=== PATIENT | female | born 1965 ===

== ENCOUNTER 2020-03-04 10:53 | Outpatient (REF) | payer OTHER, SELFPAY ==
--- NOTE | 2020-03-04 11:09 | XR_ITS ---
EXAMINATION: XR KNEE, LEFT CLINICAL INFORMATION: Pain left knee COMPARISON: Report standing AP knees 03/02/2009 TECHNIQUE: Four views of the left knee. FINDINGS: There is no fracture or dislocation or destructive process. There is normal bony mineralization. No joint narrowing or erosive change or chondrocalcinosis. Small suprapatellar effusion is suggested on the lateral view. Hoffa's fat pad appears normal. There may be punctate mineralization in the region of the distal patellar tendon. The deep infrapatellar recess is preserved. IMPRESSION: Small suprapatellar effusion. Bony structures unremarkable.
== END 2020-03-04 10:54 | disposition home or self-care (01) ==
LOC: HO.HMGCX 10:53
PROVIDERS: PCP Internal Medicine; Visit Provider Internal Medicine
DX: M25.562 Pain in left knee (principal)
CPT/HCPCS: 73564

== ENCOUNTER 2020-03-24 14:31 | Outpatient (REF) | payer OTHER, SELFPAY ==
--- NOTE | 2020-03-24 15:07 | US_ITS ---
EXAMINATION: US VENOUS ULTRASOUND WITH DOPPLER LOWER EXTREMITY, LEFT CLINICAL INFORMATION: Pain of unspecified leg. 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 Spectral analysis with color-flow imaging is performed. FINDINGS: There is normal venous compression and respiratory variation and augmented flow. The visualized common femoral vein, superficial femoral vein, profunda femoral vein, popliteal vein, and the trifurcation region shows no evidence of deep venous thrombosis. There is a 4.8 x 0.7 x 1.4 cm complex fluid collection in the popliteal fossa consistent with a Tinsley's cyst. There is a prominent left inguinal lymph node measuring 2.8 x 0.8 x 1.8 cm. There is a central fatty hilum, a benign morphologic feature. This could be reactive. If the patient's symptoms persist, followup ultrasound in 5 days 7 days might be of value to exclude proximal propagation from a non-visualized calf vein. US/US venous duplex LE LT IMPRESSION: No DVT demonstrated in the left lower extremity. Prominent left inguinal lymph node is seen, possibly reactive. Complex fluid collection in the left popliteal fossa.
[2020-03-24 17:12] LABS: Cholesterol 181 mg/dL; HDL Cholesterol 76 mg/dL; LDL Cholesterol Calculated 88 mg/dl; Triglycerides 86 mg/dL
== END 2020-03-24 14:32 | disposition home or self-care (01) ==
LOC: HO.HMGCLDS 14:31
PROVIDERS: PCP Internal Medicine; Visit Provider Internal Medicine
DX: M79.609 Pain in unspecified limb (principal); I83.819 Varicose veins of unspecified lower extremity with pain; Z00.01 Encounter for general adult medical examination with abnormal findings
CPT/HCPCS: 80061; 93971

== ENCOUNTER → 2020-03-31 08:44 | Outpatient (BNVA) | payer OTHER, SELFPAY | PROVIDERS: PCP Internal Medicine; Visit Provider Orthopaedic Surgery | DX: M22.2X2 Patellofemoral disorders, left knee (principal) | CPT/HCPCS: 20610; 99202; J1040 ==

== ENCOUNTER 2020-05-11 11:48 | Outpatient (REF) | payer OTHER, SELFPAY ==
--- NOTE | 2020-05-11 11:52 | MM_ITS ---
EXAMINATION: MM SCREENING DIGITAL BREAST TOMOSYNTHESIS, BILATERAL CLINICAL INFORMATION: Screening. Asymptomatic. Prior benign left breast surgery 2014. The lifetime risk of breast cancer based on the Tyrer-Cuzick Model is 6%. COMPARISON: Mammography: 08/09/2017, 07/11/2016, 03/31/2015, 09/08/2014 TECHNIQUE: Digital breast tomosynthesis is performed in both the craniocaudal and mediolateral oblique views along with computer-aided detection (CAD). Synthesized 2D images are generated from the tomosynthesis. FINDINGS: There are scattered areas of fibroglandular density (ACR BI-RADS breast composition Category b). Chronic oval parenchymal asymmetry posterior upper outer left breast is similar to prior studies. There is a biopsy clip marker again seen anterior central 6:00 left breast. Macrolobulated nodule mid 9:00 left breast noted on exam 2017 is no longer demonstrated. The right breast is unremarkable. Neither breast shows significant mass or architectural abnormality or abnormal calcifications. MM/MM tomosynthesis screening BI IMPRESSION: No mammographic evidence of malignancy. ASSESSMENT: BI-RADS 2: Benign RECOMMENDATION: Routine annual mammography screening. This patient's information was entered into a reminder system with a target due date for their next mammogram.
== END 2020-05-11 11:49 | disposition home or self-care (01) ==
LOC: HO.MAMMO 11:48
PROVIDERS: PCP Internal Medicine; Visit Provider Internal Medicine
DX: Z12.31 Encounter for screening mammogram for malignant neoplasm of breast (principal)
CPT/HCPCS: 77063; 77067

== ENCOUNTER 2020-06-15 09:49 | Outpatient (REF) | payer OTHER, SELFPAY ==
[2020-06-18 17:07] LABS: HPV mRNA E6/E7 rflx Not Detected (Not Detected)
== END 2020-06-15 09:50 | disposition home or self-care (01) ==
LOC: HO.LAB 09:49
PROVIDERS: PCP Internal Medicine; Visit Provider Advanced Practice Midwife
DX: Z01.419 Encounter for gynecological examination (general) (routine) without abnormal findings (principal); Z11.51 Encounter for screening for human papillomavirus (HPV); R23.2 Flushing
CPT/HCPCS: 36415; 87624; 88142

== ENCOUNTER → 2020-07-14 09:21 | Outpatient (BNVA) | payer OTHER, SELFPAY | PROVIDERS: PCP Internal Medicine; Visit Provider Surgery Vascular Surgery | DX: I83.12 Varicose veins of left lower extremity with inflammation (principal) | CPT/HCPCS: 99202 ==

== ENCOUNTER 2020-07-20 10:22 | Outpatient (REF) | payer OTHER, SELFPAY ==
--- NOTE | ~2020-07-20 | US_ITS ---
EXAMINATION: US VENOUS ULTRASOUND WITH DOPPLER LOWER EXTREMITY, BILATERAL CLINICAL INFORMATION: Varicose veins of left lower extremity without inflammation COMPARISON: Ultrasound 03/24/2020 TECHNIQUE: Ultrasound of the deep veins is performed from the hip to the calf with compression sonography and color and pulse Doppler assessment. Spectral analysis with color-flow imaging is performed. FINDINGS: There is normal venous compression of the visualized common femoral, femoral and popliteal veins bilaterally. There is no evidence of deep venous thrombosis. RIGHT SIDE: GREATER SAPHENOUS VEIN: The right saphenofemoral junction measures 0.6cm. The reflux time is 0 ms. Proximal thigh measures 0.4cm. Reflux time is 0ms. Mid thigh measures 0.2cm. Reflux time is 0ms. Above-knee measures 0.2cm. Reflux time is 0ms. At the knee measures 0.2cm. Reflux time is 0ms. At the level of the ankle it measures0.3cm. Reflux time is 0ms. The below the knee and midcalf segments are not well visualized SMALL SAPHENOUS VEIN: The upper right small saphenous vein measures 0.3 cm. Reflux time is 0ms. The lower small saphenous vein measures 0.3cm. Reflux time is 0ms. There is a small calf turkey cleaner without reflux which measures approximately 1 mm. There is a 3 mm varicose vein at the proximal thigh without reflux. There is no evidence of deep venous reflux. LEFT SIDE: GREATER SAPHENOUS VEIN: The left saphenofemoral junction measures 0.7cm. The reflux time is 0 ms. Proximal thigh measures 0.5cm. Reflux time is 0ms. Mid thigh measures 0.3cm. Reflux time is 0ms. Above-knee measures 0.2cm. Reflux time is 0ms. At the knee measures 0.2cm. Reflux time is 0ms. Below the knee measures 0.2cm. Reflux time is 0ms. Mid calf measures 0.1cm. Reflux time is 0ms. At the level of the ankle it measures0.2cm. Reflux time is 0ms. SMALL SAPHENOUS VEIN: The upper left small saphenous vein measures 0.3 cm. Reflux time is 0ms. The lower small saphenous vein measures 0.3cm. Reflux time is 0ms. There is a small distal calf turkey cleaner which measures 0.1 cm without reflux. There is a 3 mm varicose vein at the mid thigh without reflux. Incidentally there is a left groin lymph node which measures 2.2 x 0.9 x 0.9 cm with normal morphology which may be reactive. US/US venous duplex LE BI IMPRESSION: No evidence of deep venous thrombosis While there are small varicose veins in the proximal thigh bilaterally, there is no evidence of venous reflux.
== END 2020-07-20 10:23 | disposition home or self-care (01) ==
LOC: HO.US 10:22
PROVIDERS: PCP Internal Medicine; Visit Provider Surgery Vascular Surgery
DX: I83.12 Varicose veins of left lower extremity with inflammation (principal); I83.893 Varicose veins of bilateral lower extremities with other complications
CPT/HCPCS: 93970

== ENCOUNTER → 2020-07-27 09:09 | Outpatient (BNVA) | payer OTHER, SELFPAY | PROVIDERS: PCP Internal Medicine; Visit Provider Physician Assistant | DX: M22.2X2 Patellofemoral disorders, left knee (principal) | CPT/HCPCS: 20610; 99212; J1040 ==

== ENCOUNTER → 2020-12-01 13:00 | Outpatient (BNVA) | payer OTHER, SELFPAY | PROVIDERS: Visit Provider Surgery Vascular Surgery | DX: I83.12 Varicose veins of left lower extremity with inflammation (principal) | CPT/HCPCS: 99212 ==

== ENCOUNTER 2021-05-12 12:11 | Outpatient (REF) | payer OTHER, SELFPAY ==
--- NOTE | ~2021-05-12 | MM_ITS ---
EXAMINATION: MM SCREENING DIGITAL BREAST TOMOSYNTHESIS, BILATERAL CLINICAL INFORMATION: Screening. Asymptomatic. The lifetime risk of breast cancer based on the Tyrer-Cuzick Model is 5%. COMPARISON: Mammography: 05/11/2020, 08/09/2017, 07/11/2016 TECHNIQUE: Digital breast tomosynthesis is performed in both the craniocaudal and mediolateral oblique views along with computer-aided detection (CAD). Synthesized 2D images are generated from the tomosynthesis. FINDINGS: There are scattered areas of fibroglandular density (ACR BI-RADS breast composition Category b). There are no significant masses, abnormal calcifications, or other abnormalities. Parenchymal pattern is similar to prior exams. No developing density or architectural abnormality. There is a biopsy clip marker again noted anterior central 6:00 left breast. The axilla and skin contours are unremarkable. MM/MM tomosynthesis screening BI IMPRESSION: No mammographic evidence of malignancy. ASSESSMENT: BI-RADS 1: Negative RECOMMENDATION: Routine annual mammography screening. This patient's information was entered into a reminder system with a target due date for their next mammogram.
== END 2021-05-12 12:12 | disposition home or self-care (01) ==
LOC: HO.MAMMO 12:11
PROVIDERS: Visit Provider Internal Medicine
DX: Z12.31 Encounter for screening mammogram for malignant neoplasm of breast (principal)
CPT/HCPCS: 77063; 77067

== ENCOUNTER 2022-06-02 08:49 | Outpatient (REF) | payer OTHER, SELFPAY ==
--- NOTE | ~2022-06-02 | MM_ITS ---
EXAMINATION: MM DIAGNOSTIC DIGITAL BREAST TOMOSYNTHESIS, BILATERAL BILATERAL TARGETED BREAST ULTRASOUND CLINICAL INFORMATION: Palpable abnormality 9 o'clock position of the left breast. The lifetime risk of breast cancer based on the Tyrer-Cuzick Model is 4.4%. COMPARISON: Mammography: 05/12/2021 and studies dating back to 09/25/2014. TECHNIQUE: Digital breast tomosynthesis is performed in both the craniocaudal and mediolateral oblique views along with computer-aided detection (CAD). Synthesized 2D images are generated from the tomosynthesis. Bilateral targeted breast ultrasound. FINDINGS: There are scattered areas of fibroglandular density (ACR BI-RADS breast composition Category b). There are some stable circumscribed densities bilaterally. There is a new enlarging 4 x 3 mm circumscribed density approximately 4 cm from the nipple. No other new dominant mass is appreciated. No suspicious calcifications seen. Targeted left breast ultrasound in region of palpable abnormality did not demonstrate any abnormal cystic or solid masses. No region of abnormal distal sound shadowing was appreciated. No edematous change within the parenchyma seen. Targeted ultrasound of the right breast demonstrated a simple cyst at the 9 o'clock position approximately 6 cm from the nipple measuring 6 x 4 mm in size. At the 10 o'clock position approximately 3 cm from nipple, there is a 4 x 3 mm simple appearing cyst. No suspicious mass lesion or distal sound shadowing is appreciated. Results are discussed with the patient at time of visit. MM/MM tomosynthesis diagnostic BI IMPRESSION: No specific mammographic or ultrasound findings to suggest malignancy. ASSESSMENT: BI-RADS 2: Benign RECOMMENDATION: Routine annual mammography screening. This patient's information was entered into a reminder system with a target due date for their next mammogram.
== END 2022-06-02 08:50 | disposition home or self-care (01) ==
LOC: HO.MAMMO 08:49
PROVIDERS: PCP Internal Medicine; Visit Provider Internal Medicine
DX: N63.25 Unspecified lump in the left breast, overlapping quadrants (principal); R92.8 Other abnormal and inconclusive findings on diagnostic imaging of breast
CPT/HCPCS: 76642; 77062; 77066

== ENCOUNTER 2022-06-11 06:36 | Outpatient (REF) | payer OTHER, SELFPAY ==
[2022-06-11 11:26] LABS: Alanine Aminotransferase 19 U/L (0-31); Anion Gap 11 (12-20); Aspartate Amino Transferase 19 U/L (5-31); Blood Urea Nitrogen 26 mg/dL (9-16); Calcium 9.4 mg/dL (8.4-10.2); Carbon Dioxide 28 mmol/L (22-29); Chloride 108 mmol/L (96-108); Cholesterol 161 mg/dL; Estimated Glomerular Filt Rate 56; Glucose Fasting 94 mg/dL (60-99); HDL Cholesterol 56 mg/dL; LDL Cholesterol Calculated 89 mg/dl; Potassium 4.5 mmol/L (3.3-5.1); Sodium 142 mmol/L (135-145); Triglycerides 83 mg/dL
[2022-06-11 11:45] LABS: Vitamin D 25-OH Total 19.9 ng/mL (>30)
== END 2022-06-11 06:37 | disposition home or self-care (01) ==
LOC: HO.HMGCLDS 06:36
PROVIDERS: PCP Internal Medicine; Visit Provider Internal Medicine
DX: Z00.01 Encounter for general adult medical examination with abnormal findings (principal); Z28.21 Immunization not carried out because of patient refusal; K21.9 Gastro-esophageal reflux disease without esophagitis; F31.9 Bipolar disorder, unspecified
CPT/HCPCS: 36415; 80048; 80061; 82306; 84450; 84460

== ENCOUNTER 2022-06-30 13:25 | Outpatient (REF) | payer OTHER, SELFPAY | END 2022-06-30 13:26 | disposition home or self-care (01) | LOC: HO.HMGCX 13:25 | PROVIDERS: PCP Internal Medicine; Visit Provider Physician Assistant Medical | DX: Z13.89 Encounter for screening for other disorder (principal) ==

== ENCOUNTER 2022-07-01 11:47 | Outpatient (REF) | payer OTHER, SELFPAY ==
--- NOTE | ~2022-07-01 | US_ITS ---
EXAMINATION: ULTRASOUND EXTREMITY NONVASCULAR LIMITED CLINICAL INFORMATION: Localized swelling in the right plantar foot medially. COMPARISON: None TECHNIQUE: Multiple 2-D grayscale and color Doppler ultrasound images of the plantar soft tissues of the right foot were obtained. FINDINGS: In the plantar soft tissues superficial to the metatarsophalangeal joint is subcutaneous edema and a horizontally oriented superficial subcutaneous collection is seen measuring approximately 1.5 x 0.4 x 1.0 cm. Color Doppler showed no abnormal vascular flow. Mild overlying skin thickening is seen. This is asymmetric compared to limited comparison views of the left foot. US/US extremity nonvascular bailey IMPRESSION: Mild subcutaneous edema and small superficial fluid collection in the plantar soft tissues at detailed above demonstrating benign features. No overt radiopaque foreign body. Correlate with physical exam. * If these findings persist or enlarge, short-term repeat targeted soft tissue ultrasound can be performed as clinically indicated to assess for change.
== END 2022-07-01 11:48 | disposition home or self-care (01) ==
LOC: HO.HMGCX 11:47
PROVIDERS: PCP Internal Medicine; Visit Provider Physician Assistant Medical
DX: R22.41 Localized swelling, mass and lump, right lower limb (principal)
CPT/HCPCS: 76882

== ENCOUNTER 2022-09-29 08:39 | Outpatient (REF) | payer OTHER, SELFPAY ==
--- NOTE | ~2022-09-29 | XR_ITS ---
EXAMINATION: Knee x-ray CLINICAL INFORMATION: Pain COMPARISON: Right knee x-ray February 2020 TECHNIQUE: Standing AP view of both knees and lateral and sunrise view of the right knee FINDINGS: Right: Bone alignment is normal. No fracture or dislocation. Narrowing at the medial femoral tibial joint. Small osteophytes at the patellofemoral joint. Small joint effusion. Standing AP view of the left knee demonstrates mild joint space narrowing and osteophyte formation at the medial femoral tibial joint XR/XR knee standing BI IMPRESSION: Right knee: Mild degenerative changes.
--- NOTE | ~2022-09-29 | XR_ITS ---
EXAMINATION: Knee x-ray CLINICAL INFORMATION: Pain COMPARISON: Right knee x-ray February 2020 TECHNIQUE: Standing AP view of both knees and lateral and sunrise view of the right knee FINDINGS: Right: Bone alignment is normal. No fracture or dislocation. Narrowing at the medial femoral tibial joint. Small osteophytes at the patellofemoral joint. Small joint effusion. Standing AP view of the left knee demonstrates mild joint space narrowing and osteophyte formation at the medial femoral tibial joint XR/XR knee RT 2V IMPRESSION: Right knee: Mild degenerative changes.
== END 2022-09-29 08:40 | disposition home or self-care (01) ==
LOC: HO.HOSX 08:39
PROVIDERS: Visit Provider Physician Assistant
DX: M17.11 Unilateral primary osteoarthritis, right knee (principal); M79.604 Pain in right leg
CPT/HCPCS: 20610; 73560; 73565; 99202; J1040

== ENCOUNTER → 2022-11-07 10:51 | Outpatient (BNVA) | payer OTHER, SELFPAY | PROVIDERS: PCP Internal Medicine; Visit Provider Orthopaedic Surgery | DX: M17.11 Unilateral primary osteoarthritis, right knee (principal) | CPT/HCPCS: 99212 ==

== ENCOUNTER 2022-12-07 08:53 | Outpatient (REF) | payer OTHER, SELFPAY ==
[2022-12-09 22:33] LABS: TS Negative Control Passed; TS Panel A 1; TS Panel B 0; TS Positive Control Passed; TSpotTB Negative (Negative)
== END 2022-12-07 08:54 | disposition home or self-care (01) ==
LOC: HO.HMGCLDS 08:53
PROVIDERS: PCP Internal Medicine; Visit Provider Internal Medicine
DX: Z11.1 Encounter for screening for respiratory tuberculosis (principal)
CPT/HCPCS: 36415; 86481

== ENCOUNTER 2023-01-31 09:36 | Outpatient (AMB) | payer OTHER, SELFPAY ==
[2023-01-31 09:56] VITALS: BP 122/76; PULSE 76; TEMP 36.6; O2SAT 97; BMI 32.6
--- NOTE | 2023-01-31 09:56 | AM.OFFWIN_ITS ---
Intake Vital Signs 01/31/23 09:56 Height 5 ft 2 in Weight 178 lb BMI 32.6 BP 122/76 Blood Pressure Location Lt brachial Position Sitting Pulse 76 Pulse Source Pulse Oximeter Temp 97.8 F Temp Source Temporal Artery Scan Pulse Oximetry (%) 97 Intake Visit Reasons: EST/left foot both knee pain Intake Note: pt is here for c/o biltaeral foot and bilateral knee pain, due to fall a few days ago Patient Tobacco Use Status: Never used Tobacco Allergies No Known Allergies Allergy (Verified 02/04/23 08:31) Medication List - Last Reconciled 02/04/23 by Andrew Kearney MD cholecalciferol (vitamin D3) 1,250 mcg PO QWEEK 3 months ibuprofen 600 mg PO TID PRN omeprazole 40 mg PO DAILY quetiapine 0 mg PO Do you need a note to return to daycare/school/sports/work: Yes HPI EST/left foot both knee pain HPI Details 57-year-old female presents to the [facility] for a sick visit. Patient had a fall and injured her foot. She is not very clear about the nature of her fall. She reports she tripped on the curb. No active bleeding. Patient had a fall a few days prior. [facility] Medical History Bipolar disorder COVID-19 vaccination declined GERD (gastroesophageal reflux disease) History of chlamydia History of crack cocaine use History of syphilis Medial epicondylitis, left elbow Popliteal pain Refused influenza vaccine Varicose veins of leg with pain Varicose veins of leg with pain Surgical History History of breast biopsy History of lipoma Family History Father No problems noted. Mother HTN (hypertension) Arthritis Mental health disorder Brother Substance use disorder Brother No problems noted. Brother No problems noted. Sister No problems noted. Son Mental health disorder Son No problems noted. Son No problems noted. Son No problems noted. Daughter Mental health disorder Maternal Aunt Substance use disorder Social History Housing: House Alcohol intake: never Patient Tobacco Use Status: Never used Tobacco e-Cigarette/Vaping Use: Never Used service: No Current occupational status: unemployed Current occupation: Right Handed Cognitive needs: No Hearing needs: No Vision needs: No Physical Exam Vital Signs: Last Vital Signs Temp 97.8 F 01/31/23 09:56 Pulse 76 01/31/23 09:56 BP 122/76 01/31/23 09:56 Pulse Ox 97 01/31/23 09:56 BMI result Body Mass Index 32.6 Extrem Other: Left foot is slightly swollen compared to the right. Tender to touch. No visible bruising. Assessment & Plan Assessment & Plan (1) Contusion of left foot: Code(s): S90.32XA - Contusion of left foot, initial encounter Qualifiers: Encounter type: initial encounter Qualified Code(s): S90.32XA - Contusion of left foot, initial encounter Plan: X-ray images were personally reviewed by me. This note is being dictated on 02/04/2023 when the official x-ray results are available.Mildly displaced spiral fracture fourth proximal phalanx. This was not available at the time when I was seeing the patient. Patient has been later informed of the fracture diagnosis and she has an appointment with Orthopedics. Patient is using crutches. Orders: Orders XR foot LT min 3V 01/31/23 S90.32XA - Contusion of left foot, initial encounter Coding Level of Care Code Est Pt Level 4 (50964) Diagnoses Contusion of left foot, initial encounter S90.32XA Encounter type: initial encounter
== END 2023-01-31 11:22 | disposition home or self-care (01) ==
PROVIDERS: PCP Internal Medicine; Visit Provider Internal Medicine
DX: S90.32XA Contusion of left foot, initial encounter (principal)
CPT/HCPCS: 99214

== ENCOUNTER 2023-01-31 10:23 | Outpatient (REF) | payer OTHER, SELFPAY ==
--- NOTE | ~2023-01-31 | XR_ITS ---
EXAMINATION: XR FOOT, LEFT CLINICAL INFORMATION: Left foot contusion COMPARISON: None available. TECHNIQUE: AP, lateral, and oblique views of the left foot. FINDINGS: Mildly displaced spiral fracture fourth proximal phalanx. XR/XR foot LT min 3V IMPRESSION: Fractured fourth toe
== END 2023-01-31 10:24 | disposition home or self-care (01) ==
LOC: HO.HMGCX 10:23
PROVIDERS: PCP Internal Medicine; Visit Provider Internal Medicine
DX: S90.32XA Contusion of left foot, initial encounter (principal); X58.XXXA Exposure to other specified factors, initial encounter; Y93.9 Activity, unspecified; Y92.9 Unspecified place or not applicable; Y99.9 Unspecified external cause status
CPT/HCPCS: 73630

== ENCOUNTER 2023-02-10 11:18 | Outpatient (AMB) | payer OTHER, SELFPAY ==
--- NOTE | 2023-02-10 11:33 | MHC.OFFVIS ---
Intake Intake Visit Reasons: OV-Right knee pain Intake Note: Walter is a 57 year old female who presents today for a follow up of her right knee OA, Last injected with Wendy on 09/27/22. Patient reports that this injection was not helpful and she would like Dr. Shaver to inject the knee. Allergies No Known Allergies Allergy (Verified 02/10/23 11:40) Medication List - Last Reconciled 02/10/23 by Rosana Rodriguez, RN cholecalciferol (vitamin D3) 1,250 mcg PO QWEEK 3 months ibuprofen 600 mg PO TID PRN omeprazole 40 mg PO DAILY quetiapine 0 mg PO HPI OV-Right knee pain HPI Details Walter is a 57 year old woman with right knee OA. She was last injected, on 09/27/22 by JOHN Hall, with no relief. She says her previous injection helped her for ~1 week, but then her pain increased. She continues to complain of pain sporadically, without any identifying causes. She says her pain worsened a few weeks ago after a fall, where she fractured her left foot. She has been walking using crutches and with a limp. She says some days she struggles to get out of bed or perform her ADLs due to her pain. [facility] Medical History Bipolar disorder COVID-19 vaccination declined GERD (gastroesophageal reflux disease) History of chlamydia History of crack cocaine use History of syphilis Medial epicondylitis, left elbow Popliteal pain Refused influenza vaccine Varicose veins of leg with pain Varicose veins of leg with pain Surgical History History of breast biopsy History of lipoma Family History Father No problems noted. Mother HTN (hypertension) Arthritis Mental health disorder Brother Substance use disorder Brother No problems noted. Brother No problems noted. Sister No problems noted. Son Mental health disorder Son No problems noted. Son No problems noted. Son No problems noted. Daughter Mental health disorder Maternal Aunt Substance use disorder Social History Housing: House Alcohol intake: never Patient Tobacco Use Status: Never used Tobacco e-Cigarette/Vaping Use: Never Used service: No Current occupational status: unemployed Current occupation: Right Handed Cognitive needs: No Hearing needs: No Vision needs: No Review of Systems Const All systems reviewed & are unremarkable except as noted in HPI and below Physical Exam Const General: no acute distress, alert and awake Orientation/consciousness: patient oriented x3 HEENT Head: Yes normocephalic and Yes atraumatic Eyes EOM: EOMs intact bilaterally Resp Effort & Inspection: normal respiratory effort and able to speak in complete sentences Cardio Jugular venous distension: no JVD Skin General skin exam: turgor normal Rashes: no rashes Neuro General: patient oriented x3 Extrem Other: Right Knee: TTP medial compartment No effusion Psych Appearance: grossly normal Affect: normal affect Attitude: cooperative Office Procedures Joint Injection/Drain Joint Injection/Drain Details: Injected 1 mL of Decadron and 3 mL 1% lidocaine and 3 mL of 0.25% Marcaine. Site was prepped using aseptic technique. Patient tolerated the procedure well. Primary Site: right knee Approach Used: anterolateral Coding 59872 - Large joint Procedure code (CPT) selection complete Results Reviewed Results Reviewed: 02/10/23 11:31 BUPivacaine MPF 0.25 % [Sensorcaine-MPF 0.25% 10 ML] 10 ml .ROUTE .STK-MED ONE Lidocaine HCl 2 % MPF [Xylocaine 2 % MPF] 5 ml .ROUTE .STK-MED ONE dexAMETHasone sod phosphate [Decadron] 4 mg .ROUTE .STK-MED ONE I personally reviewed relevant radiographs. Medial compartment mild OR right knee, moderate OA left knee Assessment & Plan Assessment & Plan (1) Osteoarthritis of right knee: Code(s): M17.11 - Unilateral primary osteoarthritis, right knee Plan: This is a 57 year old woman with right knee OA. She has pain with daily activity, worse with ambulation or using stairs. She fell several weeks ago resulting in a foot fracture and worsening her knee pain. She has been ambulating with crutches since her fall and continues to feel limited in her ADLs. She was last injected on 09/27/22 by JOHN Hall, which she says gave her ~1 week of relief. I injected her right knee today, which she tolerated well. She can follow up prn. Plan Scribed for Roberto Shaver MD by Israel Toth, medical billing specialist, on 02/10/23 at 11:45 AM, EST. Coding Level of Care Code Est Pt Level 4 (34672) Diagnoses Osteoarthritis of right knee M17.11 CPT Codes Coding - 48539 Large joint: 89645 - Large joint ([id number])
== END 2023-02-10 12:47 | disposition home or self-care (01) ==
PROVIDERS: PCP Internal Medicine; Visit Provider Orthopaedic Surgery
DX: M17.11 Unilateral primary osteoarthritis, right knee (principal)
CPT/HCPCS: 20610; 99214

== ENCOUNTER → 2023-02-10 11:18 | Outpatient (BNVA) | payer OTHER, SELFPAY | PROVIDERS: PCP Internal Medicine; Visit Provider Orthopaedic Surgery | DX: M17.11 Unilateral primary osteoarthritis, right knee (principal) | CPT/HCPCS: 20610; 99212; J1100 ==

== ENCOUNTER 2023-05-25 09:56 | Outpatient (AMB) | payer OTHER, SELFPAY ==
[2023-05-25 09:59] VITALS: BP 124/82; PULSE 69; O2SAT 98; BMI 30.4
--- NOTE | 2023-05-25 09:59 | MHC.PC.OV ---
Vital Signs 05/25/23 09:59 Height 5 ft 2 in Weight 166 lb 2 oz BMI 30.4 BP 124/82 Blood Pressure Location Rt brachial Position Sitting Pulse 69 Pulse Source Pulse Oximeter Pulse Oximetry (%) 98 Oxygen Delivery Method Room Air Intake Visit Reasons: discuss Varicose Veins Intake Note: Pt is here because of the Varicose veins on her right leg and she also says she thinks she has a bakers cyst again Allergies No Known Allergies Allergy (Verified 05/25/23 10:20) Medication List - Last Reconciled 05/25/23 by Makenna Carbone MD ibuprofen 600 mg PO TID PRN omeprazole 40 mg PO DAILY quetiapine 0 mg PO Tobacco use date assessed: 05/25/23 Dental Screening Dental Screen Date: 05/25/23 Did you have a dental visit in the last 12 months?: No Did you have a dental problem in the last 6 months where you did not have access to dental care?: No Was dental information given to patient?: No HPI discuss Varicose Veins HPI Details 58 year-old lady here today complaining of painful varicose veins, worse toeards the end of the day, on the right leg. Has difficulty walking for extended periods of time and especially on going up and down stairs, which is also due to her lumbar degenerative disc disease . Currently applying for housing that is on ground level due to her difficulty going up and down stairs, as she has painful varicosities in right lower leg and chronic low back pain due to lumbar degenerative disc disease. She has paperwork to be completed. PFSH Medical History Varicose veins of right lower extremity with pain COVID-19 vaccination declined Medial epicondylitis, left elbow GERD (gastroesophageal reflux disease) Varicose veins of leg with pain Refused influenza vaccine Varicose veins of leg with pain Popliteal pain History of chlamydia Bipolar disorder History of syphilis History of crack cocaine use Surgical History History of breast biopsy History of lipoma Family History Father No problems noted. Mother HTN (hypertension) Arthritis Mental health disorder Brother Substance use disorder Brother No problems noted. Brother No problems noted. Sister No problems noted. Son Mental health disorder Son No problems noted. Son No problems noted. Son No problems noted. Daughter Mental health disorder Maternal Aunt Substance use disorder Social History Housing: House Alcohol intake: never Patient Tobacco Use Status: Never used Tobacco e-Cigarette/Vaping Use: Never Used service: No Current occupational status: unemployed Current occupation: Right Handed Cognitive needs: No Hearing needs: No Vision needs: No Questionnaire Thrive Questionnaire Date Thrive assessed: 06/10/22 ROSSY-7 AMB Questionnaire ROSSY-7 Date ROSSY - 7 assessed: 06/10/22 Source: Developed by Drs. Keon Cordero, Devi Fernandez, Ry Miller and colleagues, with an educational ramandeep from [employer]. Review of Systems Const All systems reviewed & are unremarkable except as noted in HPI and below Physical exam (Primary Care) Vital Signs: Last Vital Signs Pulse 69 05/25/23 09:59 BP 124/82 05/25/23 09:59 Pulse Ox 98 05/25/23 09:59 Oxygen Delivery Method Room Air 05/25/23 09:59 BMI result Body Mass Index 30.4 Tobacco/Smoking Status: Tobacco use Status Tobacco use date assessed 05/25/23 05/25/23 10:05 Patient Tobacco Use Status Never used Tobacco 05/25/23 10:05 e-Cigarette/Vaping Use Never Used 05/25/23 10:05 Thrive Assessment: Date of Thrive Assessment Date Thrive assessed 06/10/22 05/25/23 10:05 Const General: no acute distress, alert and Physically active Nutritional Appearance: obese Orientation/consciousness: patient oriented x3 Back/Spine/Pelvis Thoracic/Lumbar Spine: straight leg raise negative bilaterally and paraspinal muscle tenderness bilaterally in the mid lumbar and in the lower lumbar Skin General skin exam: no rashes or lesions noted Neuro General: patient oriented x3 Extrem Other: Enlarged varicosities on posterior aspect of right lower extremity, as below complete dL fossa, area was tender to palpation , no increased warmth, no pedal edema Assessment and Plan Assessment & Plan (1) Varicose veins of right lower extremity with pain: Code(s): I83.811 - Varicose veins of right lower extremity with pain Plan: Vascular surgery consult obtain, advised to wear compression socks up to knees when ambulating, elevate legs as much as possible. Weight loss recommend. Completed and filled out application for housing, requesting ground floor accommodation (2) Lumbar radiculopathy: Code(s): M54.16 - Radiculopathy, lumbar region Plan: Weight loss recommended, prescription sent for refill on her ibuprofen to take only as needed for, may alternate taking it with Tylenol 500 mg every 12 hours as needed. May apply heat to affected area in lower back pain Orders: Referrals Vascular Surgery Referral I83.811 - Varicose veins of right lower extremity with pain Medications: Refilled ibuprofen 600 mg PO TID PRN 30 tabs 0RF pain Coding Level of Care Code Est Pt Level 3 (49610) Diagnoses Varicose veins of right lower extremity with pain I83.811 Lumbar radiculopathy M54.16
== END 2023-05-25 10:54 | disposition home or self-care (01) ==
PROVIDERS: PCP Internal Medicine; Visit Provider Internal Medicine
DX: I83.811 Varicose veins of right lower extremity with pain (principal); M54.16 Radiculopathy, lumbar region
CPT/HCPCS: 99213

== ENCOUNTER 2023-08-10 10:41 | Outpatient (REF) | payer OTHER, SELFPAY ==
--- NOTE | ~2023-08-10 | MM_ITS ---
EXAMINATION: MM SCREENING DIGITAL BREAST TOMOSYNTHESIS, BILATERAL CLINICAL INFORMATION: Screening. Asymptomatic. COMPARISON: Mammography: This study is compared with prior exams dating back to 2018. TECHNIQUE: Digital breast tomosynthesis is performed in both the craniocaudal and mediolateral oblique views along with computer-aided detection (CAD). Synthesized 2D images are generated from the tomosynthesis. FINDINGS: There are scattered areas of fibroglandular density (ACR BI-RADS breast composition Category b). There are no significant masses, abnormal calcifications, or other abnormalities. There is tissue marker in the left breast from prior benign percutaneous biopsy. MM/MM tomosynthesis screening BI IMPRESSION: No mammographic evidence of malignancy. ASSESSMENT: BI-RADS BI-RADS 2 - Benign Findings RECOMMENDATION: Routine annual mammography screening. 1 year F/U This examination should not preclude the clinical evaluation of a suspicious palpable abnormality. This patient's information was entered into a reminder system with a target due date for their next mammogram.
== END 2023-08-10 10:42 | disposition home or self-care (01) ==
LOC: HO.MAMMO 10:41
PROVIDERS: PCP Internal Medicine; Visit Provider Internal Medicine
DX: Z12.31 Encounter for screening mammogram for malignant neoplasm of breast (principal)
CPT/HCPCS: 77063; 77067

== ENCOUNTER → 2023-08-10 10:45 | Outpatient (BNV) | payer OTHER, SELFPAY | PROVIDERS: PCP Internal Medicine; Visit Provider Radiology Diagnostic Radiology | DX: Z12.31 Encounter for screening mammogram for malignant neoplasm of breast (principal) | CPT/HCPCS: 77063; 77067 ==

== ENCOUNTER 2023-09-12 10:25 | Outpatient (AMB) | payer OTHER, SELFPAY ==
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
== END 2023-09-12 10:52 | disposition home or self-care (01) ==
PROVIDERS: PCP Internal Medicine; Visit Provider Surgery Vascular Surgery
DX: I83.11 Varicose veins of right lower extremity with inflammation (principal)
CPT/HCPCS: 99213

== ENCOUNTER → 2023-09-12 10:25 | Outpatient (BNVA) | payer OTHER, SELFPAY | PROVIDERS: PCP Internal Medicine; Visit Provider Surgery Vascular Surgery | DX: I83.11 Varicose veins of right lower extremity with inflammation (principal) | CPT/HCPCS: 99212 ==

== ENCOUNTER 2023-09-18 08:21 | Outpatient (REF) | payer OTHER, SELFPAY ==
--- NOTE | ~2023-09-18 | US_ITS ---
EXAMINATION: US LOWER EXTREMITY VENOUS (REFLUX EXAM), BILATERAL CLINICAL INDICATION: Chronic venous insufficiency with lower extremity varicose veins with inflammation COMPARISON: None. TECHNIQUE: Color flow triplex imaging and compression Doppler was performed to evaluate both the deep and the superficial systems bilaterally. To evaluate the superficial system, the examination was performed in the upright position. Color-flow Doppler ultrasound and compression ultrasound were utilized. In addition, maneuvers were utilized to demonstrate reflux. FINDINGS: 1. DEEP VENOUS ULTRASOUND OF THE RIGHT LOWER EXTREMITY: Common Femoral Vein: Compressible, normal respiratory variation and augmented flow. Femoral Vein: Compressible, normal color flow and augmentation. Popliteal Vein: Compressible, normal augmentation. Deep Reflux: There is no evidence of reflux in the deep system in either the common femoral vein, superficial femoral or the popliteal vein. There is no evidence of a Tinsley's cyst. 2. SUPERFICIAL ULTRASOUND WITH DOPPLER OF RIGHT LOWER EXTREMITY: GREAT SAPHENOUS VEIN: Saphenofemoral Junction: 0.6 cm; Reflux: 0 ms Proximal Thigh: 0.4 cm; Reflux: 0 ms Mid Thigh: 0.2 cm; Reflux: 0 ms Above Knee: 0.1 cm; Reflux: 0 ms At Knee: 0.2 cm; Reflux: 0 ms Below Knee: 0.2 cm; Reflux: 0 ms Mid Calf: 0.1 cm; Reflux: 0 ms Ankle: 0.3 cm; Reflux: 0 ms DUPLICATED MEDIAL GREAT SAPHENOUS VEIN: Diameter: 0.3 cm Reflux: None DUPLICATED LATERAL GREAT SAPHENOUS VEIN: Diameter: None imaged Reflux: NA SMALL SAPHENOUS VEIN: Saphenopopliteal Junction: 0.3 cm; Reflux: 0 ms Proximal: 0.3 cm; Reflux: 0 ms Distal: 0.3 cm; Reflux: 2732 ms VEIN OF GIACOMINI: Size: NA Reflux: NA PERFORATORS: Location: Mid thigh Size: 0.3 cm Reflux: None VARICOSITIES: Location: None significant Size: NA Reflux: NA 3. DEEP VENOUS ULTRASOUND OF THE LEFT LOWER EXTREMITY: Common Femoral Vein: Compressible, normal respiratory variation and augmented flow. Femoral Vein: Compressible, normal color flow and augmentation. Popliteal Vein: Compressible, normal augmentation. Deep Reflux: There is no evidence of reflux in the deep system in either the common femoral vein, superficial femoral or the popliteal vein. There is no evidence of a Tinsley's cyst. 4. SUPERFICIAL ULTRASOUND WITH DOPPLER OF LEFT LOWER EXTREMITY: GREAT SAPHENOUS VEIN: Saphenofemoral Junction: 0.6 cm; Reflux: 0 ms Proximal Thigh: 0.4 cm; Reflux: 0 ms Mid Thigh: 0.2 cm; Reflux: 0 ms Above Knee: 0.2 cm; Reflux: 0 ms At Knee: Not visualized Below Knee: Not visualized Mid Calf: 0.2 cm; Reflux: 0 ms Ankle: 0.3 cm; Reflux: 0 ms DUPLICATED MEDIAL GREAT SAPHENOUS VEIN: Diameter: 0.2 cm Reflux: None DUPLICATED LATERAL GREAT SAPHENOUS VEIN: Diameter: None imaged Reflux: NA SMALL SAPHENOUS VEIN: Saphenopopliteal Junction: 0.5 cm; Reflux: 0 ms Proximal: 0.3 cm; Reflux: 0 ms Distal: 0.4 cm; Reflux: 0 ms VEIN OF GIACOMINI: Size: NA Reflux: NA PERFORATORS: Location: None significant Size: NA Reflux: NA VARICOSITIES: Location: None Imaged Size: NA Reflux: NA US/US venous duplex LE BI IMPRESSION: Right: No significant reflux in the great saphenous vein. There is focal segmental reflux in the distal small saphenous vein. Left: No significant reflux in the great saphenous vein or small saphenous vein.
== END 2023-09-18 08:22 | disposition home or self-care (01) ==
LOC: HO.US 08:21
PROVIDERS: PCP Internal Medicine; Visit Provider Surgery Vascular Surgery
DX: I83.12 Varicose veins of left lower extremity with inflammation (principal)
CPT/HCPCS: 93970

== ENCOUNTER 2023-10-24 10:13 | Outpatient (AMB) | payer OTHER, SELFPAY ==
--- NOTE | 2023-10-24 10:21 | MHC.OFFVIS ---
Intake Visit Reasons: f/u s/p US 09/18/23 Intake Note: Patient presents for [facility] follow up . Patient states she has bilateral leg pain but it is worse on the right. Patient states the morning is the worst, says she has to hold onto something. Has swelling from time to time Allergies No Known Allergies Allergy (Verified 10/24/23 10:23) HPI HPI f/u s/p 09/18/23: Details: Complex 58-year-old female presents for follow-up regarding venous insufficiency testing. She reports that she has swelling and discomfort right more so than left. She does have chronic pain and appears to have difficulty ambulating. She is somewhat frustrated with the situation but now is for venous insufficiency testing follow-up. She has had no other interval issues. PFSH Medical History Varicose veins of right lower extremity with pain COVID-19 vaccination declined Medial epicondylitis, left elbow GERD (gastroesophageal reflux disease) Varicose veins of leg with pain Refused influenza vaccine Varicose veins of leg with pain Popliteal pain History of chlamydia Bipolar disorder History of syphilis History of crack cocaine use Surgical History History of breast biopsy History of lipoma Family History Father No problems noted. Mother HTN (hypertension) Arthritis Mental health disorder Brother Substance use disorder Brother No problems noted. Brother No problems noted. Sister No problems noted. Son Mental health disorder Son No problems noted. Son No problems noted. Son No problems noted. Daughter Mental health disorder Maternal Aunt Substance use disorder Social History Housing: House Alcohol intake: never Patient Tobacco Use Status: Never used Tobacco e-Cigarette/Vaping Use: Never Used service: No Current occupational status: unemployed Current occupation: Right Handed Cognitive needs: No Hearing needs: No Vision needs: No Physical Exam Extrem Other: Physical exam was limited as patient refused to change. She does have swelling of the lower extremities +1 to +2 edema. Results Reviewed Results Reviewed: Brief summary of venous insufficiency testing is as follows: right great saphenous vein: negative right small saphenous vein: negative right accessory vein: none present left great saphenous vein: negative left small saphenous vein: negative left accessory vein: none present Please note there is no evidence of any venous aneurysms or significant tortuosity Assessment & Plan Assessment & Plan (1) Varicose veins of right lower extremity with inflammation: Code(s): I83.11 - Varicose veins of right lower extremity with inflammation Category: Medical Plan: In short patient has lower extremity pain. It has unclear what the etiology of this is. Fortunately her venous insufficiency testing has been negative and last time I was able to appreciate palpable pulses. It does not appear to be vascular in nature. She did note that she did have a large varicosity in the right posterior calf. Unfortunately she did not change and was frustrated with the situation and left. She requested nothing further be done. We will follow up with her on an as-needed basis. Thank you for allowing us to assist in her care. If there are any questions or concerns please do not hesitate to contact us Coding Level of Care Code Est Pt Level 4 (40737) Diagnoses Varicose veins of right lower extremity with inflammation I83.11
== END 2023-10-24 10:40 | disposition home or self-care (01) ==
PROVIDERS: PCP Internal Medicine; Visit Provider Surgery Vascular Surgery
DX: I83.11 Varicose veins of right lower extremity with inflammation (principal)
CPT/HCPCS: 99213

== ENCOUNTER → 2023-10-24 10:13 | Outpatient (BNVA) | payer OTHER, SELFPAY | PROVIDERS: PCP Internal Medicine; Visit Provider Surgery Vascular Surgery | DX: I83.11 Varicose veins of right lower extremity with inflammation (principal) | CPT/HCPCS: 99212 ==

== ENCOUNTER 2023-11-15 10:35 | Outpatient (AMB) | payer OTHER, SELFPAY ==
[2023-11-15 10:40] VITALS: BP 118/70; PULSE 76; TEMP 36.7; O2SAT 94
--- NOTE | 2023-11-15 10:40 | AM.OFFWIN_ITS ---
Intake Vital Signs 3 11/15/23 10:40 Height 5 ft 2 in BP 118/70 Blood Pressure Location Rt brachial Position Sitting Pulse 76 Pulse Source Pulse Oximeter Temp 98.0 F Temp Source Temporal Artery Scan Pulse Oximetry (%) 94 Oxygen Delivery Method Room Air Intake Visit Reasons: EP lump under LT FT Intake Note: pt is here for lump under left foot Patient Tobacco Use Status: Never used Tobacco Allergies No Known Allergies Allergy (Verified 11/15/23 10:40) Do you need a note to return to daycare/school/sports/work: No HPI HPI Comments 2 History of Present Illness0 Details 58 y/o female patient who presents to [facility] in clinic with c/o a small lump on the plantar aspect of left foot x 1 month. Reports pain with walking, standing and shoes adding pressure to the area. Pt reports being prone to having recurrent growth under her Skin, she shows me scar tissue on both sides top of shoulders where Lumps were removed surgically. PFSH Medical History Varicose veins of right lower extremity with pain COVID-19 vaccination declined Medial epicondylitis, left elbow GERD (gastroesophageal reflux disease) Varicose veins of leg with pain Refused influenza vaccine Varicose veins of leg with pain Popliteal pain History of chlamydia Bipolar disorder History of syphilis History of crack cocaine use Surgical History History of breast biopsy History of lipoma Family History Father No problems noted. Mother HTN (hypertension) Arthritis Mental health disorder Brother Substance use disorder Brother No problems noted. Brother No problems noted. Sister No problems noted. Son Mental health disorder Son No problems noted. Son No problems noted. Son No problems noted. Daughter Mental health disorder Maternal Aunt Substance use disorder Social History Housing: House Alcohol intake: never Patient Tobacco Use Status: Never used Tobacco e-Cigarette/Vaping Use: Never Used service: No Current occupational status: unemployed Current occupation: Right Handed Cognitive needs: No Hearing needs: No Vision needs: No Review of Systems Const All systems reviewed & are unremarkable except as noted in HPI and below Physical Exam Vital Signs: Last Vital Signs Temp 98.0 F 11/15/23 10:40 Pulse 76 11/15/23 10:40 BP 118/70 11/15/23 10:40 Pulse Ox 94 11/15/23 10:40 Oxygen Delivery Method Room Air 11/15/23 10:40 Const General: comfortable and no acute distress Nutritional Appearance: obese Orientation/consciousness: patient oriented x3 Neuro General: patient oriented x3, gait normal and moves all extremities Extrem Left lower extremity: full ROM and foot Ankle/foot/toe images: 2 1. A small round, hard mass/lump left foot plantar aspect, mild tenderness to touch. Psych Speech and movement: Normal speech and movement present Assessment & Plan Assessment & Plan (1) Mass of left foot: Code(s): R22.42 - Localized swelling, mass and lump, left lower limb Plan: Xray of the foot Lipoma vs Plantar Fibroma vs Cyst Ibuprofen for pain relief Orthotics inserts for shoes F/U with PCP. Orders: Orders 2 XR foot LT 2V Today R22.42 - Localized swelling, mass and lump, left lower limb Coding Level of Care Code Est Pt Level 3 (09213) Diagnoses Mass of left foot R22.42 Time Spent (min) 15
== END 2023-11-15 11:39 | disposition home or self-care (01) ==
PROVIDERS: PCP Internal Medicine; Visit Provider Nurse Practitioner Family
DX: R22.42 Localized swelling, mass and lump, left lower limb (principal)
CPT/HCPCS: 99213

== ENCOUNTER 2023-11-15 10:52 | Outpatient (REF) | payer OTHER, SELFPAY ==
--- NOTE | ~2023-11-15 | XR_ITS ---
EXAMINATION: XR FOOT, LEFT CLINICAL INFORMATION: Localized mass, swelling COMPARISON: Prior x-ray November 15, 2023 TECHNIQUE: AP, lateral, and oblique views of the left foot. FINDINGS: No radiographic evidence of acute fracture or dislocation. Surrounding soft tissue unremarkable. Surrounding soft tissue unremarkable. No radiodense foreign body. Tarsometatarsal and metatarsophalangeal joints are normal. XR/XR foot LT 2V IMPRESSION: No significant osseous changes. MRI could be utilized to assess for soft tissue mass if clinically indicated.
== END 2023-11-15 10:53 | disposition home or self-care (01) ==
LOC: HO.HMGCX 10:52
PROVIDERS: PCP Internal Medicine; Visit Provider Nurse Practitioner Family
DX: R22.42 Localized swelling, mass and lump, left lower limb (principal)
CPT/HCPCS: 73620

== ENCOUNTER 2023-12-24 19:47 | Emergency (ER) | payer OTHER, SELFPAY ==
[2023-12-24 20:24] VITALS: BP 154/86; PULSE 64; RESP 18; TEMP 36.1; O2SAT 97; BMI 29.1
--- NOTE | 2023-12-24 20:24 | ED.DENTAL ---
HPI - Dental/Oral General Chief complaint: Dental/Oral Stated complaint: dental pain Time Seen by Provider: 12/24/23 23:26 History of Present Illness ED Provider: Maisha GARCIA Narrative: The patient is a 58-year-old female with a history of significant dental caries and decay. She has very few teeth on her jaw. She has had a painful tooth on the right jaw for about 3 days. She feels there is swelling on the side of the jaw at the base of the tooth. No fever, sweats, chills. No nausea or vomiting. Location: Tooth # (29) Related Data Home Medications ?Medication ?Instructions ?Recorded ?Confirmed quetiapine 100 mg tablet 150 mg PO DAILY 12/25/23 Previous Rx's ?Medication ?Instructions ?Recorded omeprazole 40 mg capsule,delayed 40 mg PO DAILY #90 caps 12/18/23 release amoxicillin 875 mg-potassium 1 tab PO BID #20 tabs 12/24/23 clavulanate 125 mg tablet ibuprofen 600 mg tablet 600 mg PO TID PRN pain #30 tabs 12/26/23 Allergies Allergy/AdvReac Type Severity Reaction Status Date / Time No Known Allergies Allergy Verified 12/24/23 20:26 Review of Systems Review of Systems: Yes all other systems are reviewed and are negative PMFSH Past Medical History Medical History Varicose veins of right lower extremity with pain COVID-19 vaccination declined Medial epicondylitis, left elbow GERD (gastroesophageal reflux disease) Varicose veins of leg with pain Refused influenza vaccine Varicose veins of leg with pain Popliteal pain History of chlamydia Bipolar disorder History of syphilis History of crack cocaine use Surgical History History of breast biopsy History of lipoma Family History Family History Father No problems noted. Mother HTN (hypertension) Arthritis Mental health disorder Brother Substance use disorder Brother No problems noted. Brother No problems noted. Sister No problems noted. Son Mental health disorder Son No problems noted. Son No problems noted. Son No problems noted. Daughter Mental health disorder Maternal Aunt Substance use disorder Social History Social History Housing: House Alcohol intake: never Patient Tobacco Use Status: Never used Tobacco e-Cigarette/Vaping Use: Never Used service: No Current occupational status: unemployed Current occupation: Right Handed Cognitive needs: No Hearing needs: No Vision needs: No Physical Exam Vital Signs: Vital Signs: Last Vital Signs Temp 97.9 F 12/24/23 23:55 Pulse 85 12/24/23 23:55 Resp 20 12/24/23 23:55 BP 148/58 H 12/24/23 23:55 Pulse Ox 98 12/24/23 23:55 O2 Del Method Room Air 12/24/23 23:55 BMI result Body Mass Index 29.1 Const: Other: The patient is awake and alert. She is pleasant cooperative. There is some very slight soft tissue skin swelling over the right jaw. No erythema. The patient does not seem in acute distress or toxic in any way. HEENT: Other: There seems to be some slight soft tissue swelling to the skin in the region of the right jaw. On intraoral exam the patient has many missing teeth and her remaining teeth shows significant decay. Tooth number 29 is very tender to the touch. The neighboring teeth of tooth number 29 are missing. There is some mild gingival swelling on the buccal side of the tooth but no drainable collection is appreciated. No trismus. Eyes: General: appearance normal, both eyes and all related structures Neck: Other: No significant cervical adenopathy. She moves her neck easily. Resp: Effort & Inspection: normal respiratory effort Auscultation: clear to auscultation bilaterally Cardio: Other: No cardiac murmur Rate: regular rate Rhythm: regular rhythm Heart sounds: S1 normal heart sound present and S2 normal heart sound present Skin: Other: Mild soft tissue swelling over the right jaw without erythema or fluctuance. Neuro: Other: The patient is awake, alert, nontoxic. Cranial nerves are grossly intact. She has a normal gait and seems grossly neurologically intact. Course Course Course Narrative: This is a rapid medical exam performed by Chivo Duarte NP: Additional HPI, ROS, PE not included below will be deferred to primary provider. Patient is a 58-year-old female presenting to the ED with complaint of right lower jaw pain since Monday night. States pain has become unbearable. Subjective fever. Denies discharge or drainage. Patient has poor dentition, fractured teeth, erythematous and swollen gingiva and swelling to external right lower jaw. Plan: labs, ?CT Medications Administered Discontinued Medications Generic Name Dose Route Start Last Admin Trade Name Freq PRN Reason Stop Dose Admin Amoxicillin/Clavulanate Potassium 875 mg 12/24/23 23:31 12/24/23 23:55 Amoxicillin/Potassium Clav 875 Mg Tablet PO 12/24/23 23:32 875 mg ONCE ONE Administration Medical Decision Making Medical Decision Making [facility] Narrative: The patient presents with dental pain at tooth number 29 this is a carious tooth. There is some mild soft tissue swelling on the buccal side of the gingiva. She will be started on Augmentin and is advised to follow up with a dentist. Lab Data 12/24/23 20:51 12/24/23 20:51 Labs: Lab Results 12/24/23 Range/Units 20:51 WBC 10.5 (4.8-10.8) X10*3/uL RBC 4.44 (4.20-5.50) X10*6/uL Hgb 13.1 (12.0-16.0) g/dl Hct 39.9 (37.0-47.0) % MCV 89.9 (80.0-98.0) fL MCH 29.5 (27.0-33.0) pg MCHC 32.8 (31.0-35.0) g/dl RDW 11.9 (11.0-16.0) % Plt Count 252 (160-400) X10*3/uL MPV 10.7 (9.4-12.3) fL Immature Gran % (Auto) 0.3 (0.0-0.4) % Neut % (Auto) 54.3 (45-73) % Lymph % (Auto) 33.8 (20-40) % Dickens % (Auto) 8.0 (2-11) % Eos % (Auto) 2.7 (0-4) % Baso % (Auto) 0.9 (0-2) % Lymph # (Auto) 3.6 (1.2-4.9) X10*3/uL Dickens # (Auto) 0.8 (0.1-1.2) X10*3/uL Eos # (Auto) 0.3 (0.0-0.4) X10*3/uL Baso # (Auto) 0.1 (0.0-0.2) X10*3/uL Abs Immat Gran (auto) 0.03 (0.00-0.03) X10*3/uL Absolute Neuts (auto) 5.7 (2.0-8.3) x10*3/uL Absolute Nucleated RBC 0.000 (0.0-0.012) X10*3/uL Nucleated RBC % (auto) 0.0 (0.0-0.2) /100WBC Sodium 144 (135-145) mmol/L Potassium 4.7 (3.3-5.1) mmol/L Chloride 110 H (96-108) mmol/L Carbon Dioxide 27 (22-29) mmol/L Anion Gap 12 (12-20) BUN 18 H (9-16) mg/dL Creatinine 0.85 (0.5-1.4) mg/dL Estim Creat Clear Calc 65.5 Estimated GFR > 60 Random Glucose 106 (60-115) mg/dL Calcium 10.2 D (8.4-10.2) mg/dL Total Bilirubin 0.2 (0.0-1.0) mg/dL AST 25 (5-31) U/L ALT 23 (0-31) U/L Alkaline Phosphatase 112 (39-117) U/L Total Protein 7.8 (6.5-8.0) g/dL Albumin 4.3 (3.5-5.0) g/dL Discharge Plan Discharge Clinical Impression: Dental infection Patient Disposition: Home, Self-Care Instructions: Dental Abscess (ED) Additional Instructions: You have been started on an antibiotic for a dental infection. This antibiotics is amoxicillin-clavulanate (also known as Augmentin). Please take this antibiotic 2 times a day. Prescription was sent of the [facility] pharmacy. You may use acetaminophen (Tylenol) and ibuprofen as needed for discomfort. Apply warm compresses to your jaw. I believe that the [facility] is affiliated with the [facility]. I believe that the [facility] has dental services available. Therefore I think that if you go to your regular doctor's office as a walk-in patient tomorrow morning they should be able to help you get dental services. Return to the emergency room if worse. Prescriptions: New amoxicillin-pot clavulanate 875-125 mg tablet 1 tab PO BID Qty: 20 0RF No Action omeprazole 40 mg capsule,delayed release(DR/EC) 40 mg PO DAILY Qty: 90 0RF ibuprofen 600 mg tablet 600 mg PO TID PRN (Reason: pain) Qty: 30 0RF quetiapine 100 mg tablet 150 mg PO DAILY Referrals: Makenna Carbone MD [Primary Care Provider] - (Dental infection) Interventions: ED Discharge Assessment Last Done: 12/24/23 23:55 Discharge Date/Time: 12/24/23 23:57 Print Language: Samoan
[2023-12-24 21:03] LABS: MANUAL DIFF FLAG NO
[2023-12-24 21:04] LABS: Basophils Absolute Auto 0.1 X10*3/uL (0.0-0.2); Basophils Percent Auto 0.9 % (0-2); Eosinophils Absolute Auto 0.3 X10*3/uL (0.0-0.4); Eosinophils Percent Auto 2.7 % (0-4); Hematocrit 39.9 % (37.0-47.0); Hemoglobin 13.1 g/dl (12.0-16.0); Imm Gran Abs Auto 0.03 X10*3/uL (0.00-0.03); Imm Gran Pct Auto 0.3 % (0.0-0.4); Lymphocytes Absolute Auto 3.6 X10*3/uL (1.2-4.9); Lymphocytes Percent Auto 33.8 % (20-40); Mean Corpuscular HGB Conc 32.8 g/dl (31.0-35.0); Mean Corpuscular Hemoglobin 29.5 pg (27.0-33.0); Mean Corpuscular Volume 89.9 fL (80.0-98.0); Mean Platelet Volume 10.7 fL (9.4-12.3); Monocytes Absolute Auto 0.8 X10*3/uL (0.1-1.2); Neutrophils Absolute Auto 5.7 x10*3/uL (2.0-8.3); Neutrophils Percent Auto 54.3 % (45-73); Platelet Count 252 X10*3/uL (160-400); Red Blood Count 4.44 X10*6/uL (4.20-5.50); Red Cell Distribution Width 11.9 % (11.0-16.0); White Blood Count 10.5 X10*3/uL (4.8-10.8)
[2023-12-24 21:19] LABS: Alanine Aminotransferase 23 U/L (0-31); Albumin Level 4.3 g/dL (3.5-5.0); Alkaline Phosphatase 112 U/L (39-117); Anion Gap 12 (12-20); Aspartate Amino Transferase 25 U/L (5-31); Bilirubin Total 0.2 mg/dL (0.0-1.0); Blood Urea Nitrogen 18 mg/dL (9-16); Calcium 10.2 mg/dL (8.4-10.2); Carbon Dioxide 27 mmol/L (22-29); Chloride 110 mmol/L (96-108); Creatinine Clr Calc Pharmacy 65.5; Estimated Glomerular Filt Rate > 60; Glucose Random 106 mg/dL (60-115); Potassium 4.7 mmol/L (3.3-5.1); Sodium 144 mmol/L (135-145); Total Protein 7.8 g/dL (6.5-8.0)
--- NOTE | 2023-12-24 22:24 | PC.NURSE ---
patient approached this nurse inquiring when she will be seen. explained that there are several people waiting to be seen and this nurse is unable to provide a time as to when a patient will be seen. pt sts I've already be waiting for over 30 minutes allowed pt to vent frustrations. pt returned to exam room. pt still in exam room at this time.
[2023-12-24 23:13] VITALS: BP 148/58; PULSE 85; TEMP 36.6; O2SAT 98
[2023-12-24 23:55] VITALS: BP 148/58; PULSE 85; RESP 20; TEMP 36.6; O2SAT 98
[2023-12-24] MEDS: Amoxicillin/Potassium Clav 875 MG TABLET PO (23:55)
== END 2023-12-24 23:57 | disposition home or self-care (01) ==
PROVIDERS: Registered Nurse Emergency; Emergency Provider Emergency Medicine; PCP Internal Medicine
DX: K04.7 Periapical abscess without sinus (principal); Z79.899 Other long term (current) drug therapy
CPT/HCPCS: 36415; 80053; 85025; 99282

== ENCOUNTER 2023-12-25 11:51 | Outpatient (AMB) | payer OTHER, SELFPAY ==
[2023-12-25 12:18] VITALS: BP 118/66; PULSE 71; TEMP 36.7; O2SAT 98; BMI 28.9
--- NOTE | 2023-12-25 12:18 | MHC.OFFWIV ---
Intake Vital Signs 12/25/23 12:18 Height 5 ft 2 in Weight 158 lb BMI 28.9 BP 118/66 Blood Pressure Location Rt brachial Position Sitting Pulse 71 Pulse Source Pulse Oximeter Temp 98.1 F Temp Source Oral Pulse Oximetry (%) 98 Oxygen Delivery Method Room Air Intake Visit Reasons: Cyst under left foot Intake Note: Pt c/o cyst under LT foot. Started months ago Patient Tobacco Use Status: Never used Tobacco Allergies No Known Allergies Allergy (Verified 12/24/23 20:26) HPI HPI Comments History of Present Illness Details Patient is a 58-year-old female who is complaining of a lump on the bottom of her left foot that has been there for many months. She states it is now growing and becoming painful. She states that it is painful to walk on. She tells me she has had 2 lipomas in the past and once they got big enough became painful, she needed to have them surgically removed. She is here asking for a referral for a wire stitcher operator. PFSH Medical History Varicose veins of right lower extremity with pain COVID-19 vaccination declined Medial epicondylitis, left elbow GERD (gastroesophageal reflux disease) Varicose veins of leg with pain Refused influenza vaccine Varicose veins of leg with pain Popliteal pain History of chlamydia Bipolar disorder History of syphilis History of crack cocaine use Surgical History History of breast biopsy History of lipoma Family History Father No problems noted. Mother HTN (hypertension) Arthritis Mental health disorder Brother Substance use disorder Brother No problems noted. Brother No problems noted. Sister No problems noted. Son Mental health disorder Son No problems noted. Son No problems noted. Son No problems noted. Daughter Mental health disorder Maternal Aunt Substance use disorder Social History Housing: House Alcohol intake: never Patient Tobacco Use Status: Never used Tobacco e-Cigarette/Vaping Use: Never Used service: No Current occupational status: unemployed Current occupation: Right Handed Cognitive needs: No Hearing needs: No Vision needs: No Review of Systems Const All systems reviewed & are unremarkable except as noted in HPI and below Physical Exam Vital Signs: Last Vital Signs Temp 98.1 F 12/25/23 12:18 Pulse 71 12/25/23 12:18 BP 118/66 12/25/23 12:18 Pulse Ox 98 12/25/23 12:18 Oxygen Delivery Method Room Air 12/25/23 12:18 BMI result Body Mass Index 28.9 Const General: cooperative, healthy appearing, comfortable and no acute distress Orientation/consciousness: patient oriented x3 Limitations: no limitations HEENT Head: Yes normal to inspection Face and sinus: Yes normal facial exam Eyes General: appearance normal, both eyes and all related structures Neck Neck: Yes normal visual inspection, Yes full ROM and Yes no lymphadenopathy Resp Effort & Inspection: normal respiratory effort and able to speak in complete sentences Skin General skin exam: no rashes or lesions noted Neuro General: patient oriented x3 Extrem Right lower extremity: foot (1.5cm x1cm and firm but mobile cyst on medial/plantar aspect) Details: normal capillary refill, toes with normal ROM and no edema; no unusual warmth Assessment & Plan Assessment & Plan (1) Lipoma of foot: Code(s): D17.20 - Benign lipomatous neoplasm of skin and subcutaneous tissue of unspecified limb Plan: Sent message to PCP for referral to wire stitcher operator or general surgeon for removal of lipoma. Plan See above Coding Level of Care Code Est Pt Level 3 (47057) Diagnoses Lipoma of foot D17.20
== END 2023-12-25 13:11 | disposition home or self-care (01) ==
PROVIDERS: PCP Internal Medicine; Visit Provider Physician Assistant
DX: D17.20 Benign lipomatous neoplasm of skin and subcutaneous tissue of unspecified limb (principal)
CPT/HCPCS: 99213

== ENCOUNTER 2024-03-01 08:09 | Outpatient (AMB) | payer OTHER, SELFPAY ==
--- NOTE | 2024-03-01 08:10 | A.OFFPC_ITS ---
Intake Visit Reasons: thyroid referral/concerns Die Sizer Required: No Allergies No Known Allergies Allergy (Verified 03/02/24 04:56) Medication List - Last Reconciled 03/01/24 by Makenna Carbone MD ibuprofen 600 mg PO TID PRN omeprazole 40 mg PO DAILY quetiapine 150 mg PO DAILY quetiapine mg PO Tobacco use date assessed: 03/01/24 Dental Screening Dental Screen Date: 05/25/23 HPI thyroid referral/concerns HPI Details Patient here to have her thyroid checked. She has bipolar disorder, currently followed at [facility] . It has been noticed by her psychiatry that her TSH was elevated on previous labs drawn. But her free T4 was within normal limits. Patient states that she has been feeling well, denies any unusual weight loss or weight gain, no alteration in bowel habits, denies any mellitus of fatigue, no worsening of her depression/anxiety PFSH Medical History Varicose veins of right lower extremity with pain COVID-19 vaccination declined Medial epicondylitis, left elbow GERD (gastroesophageal reflux disease) Varicose veins of leg with pain Refused influenza vaccine Varicose veins of leg with pain Popliteal pain History of chlamydia Bipolar disorder History of syphilis History of crack cocaine use Surgical History History of breast biopsy History of lipoma Family History Father No problems noted. Mother HTN (hypertension) Arthritis Mental health disorder Brother Substance use disorder Brother No problems noted. Brother No problems noted. Sister No problems noted. Son Mental health disorder Son No problems noted. Son No problems noted. Son No problems noted. Daughter Mental health disorder Maternal Aunt Substance use disorder Social History Housing: House Alcohol intake: never Patient Tobacco Use Status: Never used Tobacco e-Cigarette/Vaping Use: Never Used service: No Current occupational status: unemployed Current occupation: Right Handed Cognitive needs: No Hearing needs: No Vision needs: No Questionnaire PHQ-9 Over the last 2 weeks, how often have you been bothered by any of the following problems? 10912 - PHQ-9 Billing: Patient declined-do not bill Source: Developed by Drs. Keon Cordero, Devi Ry Stone and colleagues, with an educational ramandeep from [employer]. Thrive Questionnaire Date Thrive assessed: 03/01/24 I am a: Patient What is your living situation today?: I have a steady place to live Within the past 12 months, did the food you bought not last and you didn't have the money to get more?: Sometimes True Within the past 12 months, did you worry whether your food would run out before you got money to buy more?: Sometimes True Do you have trouble paying for medicines?: No Do you have trouble getting transportation to medical appointments?: No Do you have trouble paying your heating and electricity bill?: No Do you have trouble taking care of your child, family member or friend?: No Do you have trouble with day-to-day activities such as bathing, preparing meals, shopping, managing finances, etc.?: No Are you currently unemployed and looking for a job?: No Are you interested in more education?: No Please select the resources that you would like help with: None Currently or been in a relationship where the following occur: No concerns reported THRIVE Score: 2 AUDIT C Alcohol Use Questionnaire (AUDIT-C) 1. How often do you have a drink containing alcohol?: Monthly or less 2. How many drinks containing alcohol do you have on a typical day when you are drinking?: 1 or 2 (0) 3. How often do you have six or more drinks on one occasion?: Never Total Score: 1 Score Reviewed/Action Taken: Yes ROSSY-7 AMB Questionnaire ROSSY-7 Date ROSSY - 7 assessed: 03/01/24 Source: Developed by Drs. Keon Cordero, Ry Verde and colleagues, with an educational ramandeep from [employer]. ROSSY-7 Assessment Billing ROSSY-7 Assessment Tool: pt declined-do not bill Review of Systems Const All systems reviewed & are unremarkable except as noted in HPI and below Physical exam (Primary Care) Tobacco/Smoking Status: Tobacco use Status Tobacco use date assessed 03/01/24 03/01/24 08:14 Patient Tobacco Use Status Never used Tobacco 03/01/24 08:10 e-Cigarette/Vaping Use Never Used 03/01/24 08:10 Thrive Assessment: Date of Thrive Assessment Date Thrive assessed 03/01/24 03/01/24 08:14 Currently or been in a relationship where the following occur: No concerns repo rted Telehealth Telehealth Telehealth Platform: [employer] Location of provider rendering services: practice address Location of patient: address on file Patient Identification confirmed using: Name, : Yes Telehealth method: video Patient verbally consented to treatment: Yes Patient verbally consented to billing insurance company: Yes Patient informed of any privacy concerns related to visit: Yes Minutes spent on Phone/Video with Pt.: 15 Coding Level of Care Code Tele Est Pt Level 3 (74036) Diagnoses High thyroid stimulating hormone (TSH) level R79.89 Bipolar affective disorder, remission status unspecified F31.9 Active/Remission status: remission status unspecified Assessment & Plan Assessment & Plan (1) High thyroid stimulating hormone (TSH) level: Code(s): R79.89 - Other specified abnormal findings of blood chemistry Plan: Currently asymptomatic, TSH with free T4 level ordered (2) Bipolar disorder: Code(s): F31.9 - Bipolar disorder, unspecified Category: Medical Qualifiers: Active/Remission status: remission status unspecified Qualified Code(s): F31.9 - Bipolar disorder, unspecified Plan: currently being followed at [facility] Orders: Orders TSH reflex Free T4 03/01/24 F31.9 - Bipolar disorder, unspecified, R79.89 - Other specified abnormal findings of blood chemistry
== END 2024-03-01 08:29 | disposition home or self-care (01) ==
LOC: HO.HMCC 08:09
PROVIDERS: PCP Internal Medicine; Visit Provider Internal Medicine
DX: R79.89 Other specified abnormal findings of blood chemistry (principal); F31.9 Bipolar disorder, unspecified

== ENCOUNTER → 2024-03-01 08:09 | Outpatient (BNVA) | payer OTHER, SELFPAY | PROVIDERS: PCP Internal Medicine; Visit Provider Internal Medicine ==

== ENCOUNTER 2024-03-06 11:45 | Outpatient (REF) | payer OTHER, SELFPAY ==
[2024-03-06 14:05] LABS: TSH reflex Free T4 3.49 uIU/mL (0.32-4.0); Vitamin D 25-OH Total 46.2 ng/mL (>30)
== END 2024-03-06 11:46 | disposition home or self-care (01) ==
LOC: HO.HMGCLDS 11:45
PROVIDERS: PCP Internal Medicine; Visit Provider Internal Medicine
DX: R79.89 Other specified abnormal findings of blood chemistry (principal); F31.9 Bipolar disorder, unspecified; Z86.39 Personal history of other endocrine, nutritional and metabolic disease
CPT/HCPCS: 36415; 82306; 84443

== ENCOUNTER 2024-06-24 10:54 | Outpatient (AMB) | payer OTHER, SELFPAY ==
--- NOTE | 2024-06-24 11:10 | A.OFFPC_ITS ---
Vital Signs 06/24/24 11:18 Height 5 ft 2 in Weight 172 lb BMI 31.5 BP 110/84 Blood Pressure Location Lt brachial Position Sitting Respiration 18 Pulse 71 Pulse Source Pulse Oximeter Temp 98.1 F Temp Source Oral Pulse Oximetry (%) 98 Oxygen Delivery Method Room Air Intake Visit Reasons: PE Intake Note: Pt is here today for her PE: last mammogram 08/10/23, papsmear 06/16/20 Allergies No Known Allergies Allergy (Verified 06/24/24 11:26) Medication List - Last Reconciled 06/24/24 by Makenna Carbone MD omeprazole 40 mg PO DAILY quetiapine 150 mg PO DAILY quetiapine mg PO Tobacco use date assessed: 06/24/24 Dental Screening Dental Screen Date: 05/25/23 Did you have a dental visit in the last 12 months?: No Did you have a dental problem in the last 6 months where you did not have access to dental care?: No Was dental information given to patient?: No HPI PE HPI Details 59-year-old lady here today for her phys ical exam. She is up-to-date with her screening mammogram, done last year, scheduled for a repeat screening mammogram [place]15[place]20[place] [facility] [place] She is up-to-date with her cervical cancer screening and pelvic exam, last done in 2020 - Colon cancer screening noncompliance d ue to refusal of both colonoscopy and Cologuard, citing discomfort with the procedures. - Osteophyte in the foot identified, non -cancerous, but the patient refuses surgical removal due to perceived risk. - The patient has bipolar disorder manag ed under psychiatric care. - Overweight status exacerbated by seden tary lifestyle and dietary habits. - Shingles vaccination nonadherence, pen ding second dose. - Seasonal influenza vaccinations declin ed. [facility] Medical History Varicose veins of right lower extremity with pain COVID-19 vaccination declined Medial epicondylitis, left elbow GERD (gastroesophageal reflux disease) Varicose veins of leg with pain Refused influenza vaccine Varicose veins of leg with pain Popliteal pain History of chlamydia Bipolar disorder History of syphilis History of crack cocaine use Surgical History History of breast biopsy History of lipoma Family History Father No problems noted. Mother HTN (hypertension) Arthritis Mental health disorder Brother Substance use disorder Brother No problems noted. Brother No problems noted. Sister No problems noted. Son Mental health disorder Son No problems noted. Son No problems noted. Son No problems noted. Daughter Mental health disorder Maternal Aunt Substance use disorder Social History Housing: House Alcohol intake: never Patient Tobacco Use Status: Never used Tobacco e-Cigarette/Vaping Use: Never Used service: No Current occupational status: unemployed Current occupation: Right Handed Cognitive needs: No Hearing needs: No Vision needs: Yes Questionnaire PHQ-9 Over the last 2 weeks, how often have you been bothered by any of the following problems? 1. Little interest or pleasure in doing things: not at all 2. Feeling down, depressed, or hopeless: not at all 3. Trouble falling or staying asleep, or sleeping too much: several days 4. Feeling tired or having little energy: several days 5. Poor appetite or overeating: not at all 6. Feeling bad about yourself - or that you are a failure or have let yourself or your family down: several days 7. Trouble concentrating on things, such as reading the newspaper or watching television: not at all 8. Moving or speaking so slowly that other people could have noticed. Or the opposite - being so fidgety or restless that you have been moving around a lot more than usual: not at all 9. Thoughts that you would be better off or of hurting yourself in some way: not at all Total score: 3 Depression Screening Interpretation: Negative Depression Screening Done: Yes 08814 - PHQ-9 Billing: Yes Source: Developed by Drs. Keon Cordero, Devi Fernandez, Ry Miller and colleagues, with an educational ramandeep from [employer]. Thrive Questionnaire Date Thrive assessed: 06/24/24 I am a: Patient What is your living situation today?: I have a steady place to live Within the past 12 months, did the food you bought not last and you didn't have the money to get more?: Sometimes True Within the past 12 months, did you worry whether your food would run out before you got money to buy more?: Sometimes True Do you have trouble paying for medicines?: No Do you have trouble getting transportation to medical appointments?: No Do you have trouble paying your heating and electricity bill?: No Do you have trouble taking care of your child, family member or friend?: No Do you have trouble with day-to-day activities such as bathing, preparing meals, shopping, managing finances, etc.?: No Are you currently unemployed and looking for a job?: No Are you interested in more education?: No Please select the resources that you would like help with: None Currently or been in a relationship where the following occur: No concerns reported THRIVE Score: 2 AUDIT C Alcohol Use Questionnaire (AUDIT-C) 1. How often do you have a drink containing alcohol?: Never Total Score: 0 ROSSY-7 AMB Questionnaire ROSSY-7 Date ROSSY - 7 assessed: 06/24/24 Feeling nervous, anxious, or on edge: 0 = Not at all Not being able to stop or control worryin = Not at all Worrying too much about different things: 0 = Not at all Trouble relaxin = Not at all Being so restless that it is hard to sit still: 0 = Not at all Becoming easily annoyed or irritable: 0 = Not at all Feeling afraid as if something awful might happen: 0 = Not at all Total ROSSY-7 score (0-4 normal; 5-9 mild; 10-14 moderate; 15-21 severe): 0 Source: Developed by Drs. Keon Cordero, Devi Fernandez, Ry Miller and colleagues, with an educational ramandeep from [employer]. ROSSY-7 Assessment Billing ROSSY-7 Assessment Tool: ROSSY-7 Assessment 29524 Review of Systems Const Denies body aches, Denies fatigue, Denies frequent falls, Denies malaise and Denies night sweats Eyes Details: Sees Dr. Arvizu, up-to-date with her eye exam ENT Details: Declines dental prophylaxis Reports no additional complaints Card Denies chest pain at rest, Denies chest pain with activity, Denies syncope, Denies pedal edema, Denies irregular heart rhythm, Denies lightheadedness and Denies dyspnea Resp Denies cough, Denies dyspnea and Denies wheezing GI Denies melena, Denies bloating, Denies hematochezia, Denies change in bowel habits, Denies change in stool character, Denies excessive flatus and Reports heartburn (Occasional) Details: up to Date with her Pap smear, goes [place] [facility] [place] [facility] Reports no additional complaints Musc Denies arthralgias, Denies joint swelling and Reports stiffness Skin/Breast Denies lesions and Denies rash Neuro Reports no additional complaints, Denies syncope, Denies frequent falls, Denies restless legs and Denies paresthesias Psych Reports no additional complaints Endo Denies fatigue Naseem/Lymph Reports no additional complaints Aller/Immun Denies wheezing Physical exam (Primary Care) Vital Signs: Last Vital Signs Temp 98.1 F 06/24/24 11:18 Pulse 71 06/24/24 11:18 Resp 18 06/24/24 11:18 BP 110/84 06/24/24 11:18 Pulse Ox 98 06/24/24 11:18 Oxygen Delivery Method Room Air 06/24/24 11:18 BMI result Body Mass Index 31.5 BMI Assessment/Plan discussion: High BMI High, discussed plan: lifestyle, weight reduction, dietary and physical activity Tobacco/Smoking Status: Tobacco use Status Tobacco use date assessed 06/24/24 06/24/24 11:23 Patient Tobacco Use Status Never used Tobacco 06/24/24 11:12 e-Cigarette/Vaping Use Never Used 06/24/24 11:12 PHQ-9: PHQ-9 Score PHQ-9: Total score 5 06/24/24 11:27 Depression Screening Interpretation: Negative Thrive Assessment: Date of Thrive Assessment Date Thrive assessed 06/24/24 06/24/24 11:23 Currently or been in a relationship where the following occur: No concerns reported Advance Care Planning discussion: Completed/Scanned Date of discussion: 06/24/24 Who was present: Patient Forms completed: Health Care Proxy Time spent: 16-45 minutes Actual minutes spent: 3 Const Other: Alert oriented x3 in no acute cardiorespiratory distress ambulatory with normal gait Nutritional Appearance: obese HENMT Head: Yes normocephalic and Yes atraumatic Ears: hearing grossly normal bilaterally, external ears normal, TM's normal bilaterally and EAC's normal General nose exam: Normal external nose present Face and sinus: Yes face symmetric Mouth: Normal oral and palatal mucosa present, tongue normal, oropharynx normal and moist mucous membranes Teeth and gingiva: poor dentition Eyes General: appearance normal, both eyes and all related structures Pupils: Equal, round and reactive pupils present EOM: EOMs intact bilaterally Neck Neck: Yes full ROM, Yes no lymphadenopathy and Yes supple Thyroid: Thyroid normal Chest Chest palpation & inspection: normal inspection of the chest Breast/axilla inspection: normal inspection of the breasts Breast/axilla palpation: normal palpation of the breasts Resp Effort & Inspection: normal respiratory effort and able to speak in complete sentences Auscultation: clear to auscultation bilaterally Cardio Other: S1-S2 present regular rate and rhythm Palpation: normal PMI Rate: regular rate Rhythm: regular rhythm Heart sounds: S1 normal heart sound present and S2 normal heart sound present GI Other: Normal bowel sounds, soft, no epigastric tenderness on palpation, no mass, no rebound or guarding noted Palpation (GI): Soft to palpation, nontender, no guarding and no masses Auscultation: normal bowel sounds General: Yes no CVA tenderness and Yes deferred (Currently followed by [employer]) Back/Spine/Pelvis Back: no CVA tenderness and No back tenderness Cervical Spine: normal cervical lordosis Thoracic/Lumbar Spine: thoracic and lumbar spine normal to inspection and thoraco-lumbar ROM normal Skin Lesions: no lesions Rashes: no rashes Neuro General: gait normal, Normal light touch and pain sensation, no focal motor deficits, CN's II-XI intact bilaterally and normal sensation to monofilament Cranial nerves: Yes Equal, round and reactive pupils present Extrem General: Yes normal to inspection, Yes full ROM, Yes no joint enlargement, Yes no pedal edema, Yes no calf tenderness and Yes normal gait Psych Appearance: grossly normal Mental Status: mental status grossly normal Speech and movement: Normal speech and movement present Affect: normal affect Attitude: cooperative Thought process: Normal thought process present Thought content: Normal thought content present Coding Level of Care Code Est Pt Prev Care 40-64y(90979) Diagnoses Annual visit for general adult medical examination with abnormal findings Z00.01 Bipolar affective disorder, remission status unspecified F31.9 Active/Remission status: remission status unspecified Refused influenza vaccine Z28.21 GERD (gastroesophageal reflux disease) K21.9 Subcutaneous mass of left foot R22.42 Additional Codes ROSSY-7 Assessment Billing - ROSSY-7 Assessment Tool: ROSSY-7 Assessment 15444 ([id number]) PHQ-9 - 90700 - PHQ-9 Billing: Yes ([id number]) Vital Signs *Quality* - Advance Care Planning discussion: Completed/Scanned ([id number]) Vital Signs *Quality* - Time spent: 16-45 minutes ([id number]) Assessment & Plan Assessment & Plan (1) Annual visit for general adult medical examination with abnormal findings: Code(s): Z00.01 - Encounter for general adult medical examination with abnormal findings Plan: Will check appropriate labs. Recommended dental visit every 6 months and regular eye exams, at least every 2 years, sees Dr. Arvizu. Take adequate calcium in diet and vitamin-D 3 at 2000 IU per cap once a day, in addition to weight-bearing exercises to help maintain good muscle tone and weight control. Instructed to do self-breast exam, and continue to get yearly mammogram, appointment already scheduled for her next 1 on 08/15/2024. Patient refused to get a flu shot or the COVID vaccine but she did get her shingles vaccine and is due for her 2nd dose in July. Patient does not want to get any colon cancer screening (2) Bipolar disorder: Comment: Followed at [facility] Psychiatry Code(s): F31.9 - Bipolar disorder, unspecified Category: Medical Qualifiers: Active/Remission status: remission status unspecified Qualified Code(s): F31.9 - Bipolar disorder, unspecified Plan: Currently followed by psychiatrist at [facility] (3) Refused influenza vaccine: Code(s): Z28.21 - Immunization not carried out because of patient refusal Category: Medical Plan: Patient does not want to get any flu shot (4) GERD (gastroesophageal reflux disease): Comment: seen by Dr Bragg in 2019 , placed on pantoprazole Code(s): K21.9 - Gastro-esophageal reflux disease without esophagitis Category: Medical Plan: Continue omeprazole (5) Subcutaneous mass of left foot: Code(s): R22.42 - Localized swelling, mass and lump, left lower limb Plan: he patient expressed decisiveness against surgery for a confirmed benign osteophyte, thus conservative management with using pads to cushion her feet and wearing proper fitting shoes Orders: Orders Lipid Panel 06/24/24 F31.9 - Bipolar disorder, unspecified, K21.9 - Gastro-esop hageal reflux disease without esophagitis, Z00.01 - Encounter for general adult medical examination with abnormal findings, Z71.89 - Other specified counseling Alanine Aminotransferase 06/24/24 F31.9 - Bipolar disorder, unspecified, K21.9 - Gastro-esophageal reflux disease without esophagitis, Z00.01 - Encounter for general adult medical examination with abnormal findings, Z71.89 - Other specified counseling Aspartate Amino Transferase 06/24/24 F31.9 - Bipolar disorder, unspecified, K21.9 - Gastro-esophageal reflux disease without esophagitis, Z00.01 - Encounter for general adult medical examination with abnormal findings, Z71.89 - Other specified counseling Basic Metabolic Panel Fasting 06/24/24 F31.9 - Bipolar disorder, unspecified, K21.9 - Gastro-esophageal reflux disease without esophagitis, Z00.01 - Encounter for general adult medical examination with abnormal findings, Z71.89 - Other specified counseling Vitamin D 25-OH Total 06/24/24 F31.9 - Bipolar disorder, unspecified, K21.9 - Gastro-esophageal reflux disease without esophagitis, Z00.01 - Encounter for general adult medical examination with abnormal findings, Z71.89 - Other specified counseling
[2024-06-24 11:18] VITALS: BP 110/84; PULSE 71; RESP 18; TEMP 36.7; O2SAT 98; BMI 31.5
== END 2024-06-24 12:14 | disposition home or self-care (01) ==
PROVIDERS: PCP Internal Medicine; Visit Provider Internal Medicine
DX: Z00.01 Encounter for general adult medical examination with abnormal findings (principal); F31.9 Bipolar disorder, unspecified; Z28.21 Immunization not carried out because of patient refusal; K21.9 Gastro-esophageal reflux disease without esophagitis; R22.42 Localized swelling, mass and lump, left lower limb; Z00.00 Encounter for general adult medical examination without abnormal findings

== ENCOUNTER → 2024-06-24 10:54 | Outpatient (BNVA) | payer OTHER, SELFPAY | PROVIDERS: PCP Internal Medicine; Visit Provider Internal Medicine | DX: Z00.01 Encounter for general adult medical examination with abnormal findings (principal); F31.9 Bipolar disorder, unspecified; K21.9 Gastro-esophageal reflux disease without esophagitis; R22.42 Localized swelling, mass and lump, left lower limb | CPT/HCPCS: 96127; 99396; 99497 ==

== ENCOUNTER 2024-08-15 11:07 | Outpatient (REF) | payer OTHER, SELFPAY | END 2024-08-15 11:08 | disposition home or self-care (01) | LOC: HO.MAMMO 11:07 | PROVIDERS: PCP Internal Medicine; Visit Provider Internal Medicine | DX: Z12.31 Encounter for screening mammogram for malignant neoplasm of breast (principal) | CPT/HCPCS: 77063; 77067 ==

== ENCOUNTER → 2024-08-15 11:15 | Outpatient (BNV) | payer OTHER, SELFPAY | PROVIDERS: PCP Internal Medicine; Visit Provider Internal Medicine | DX: Z12.31 Encounter for screening mammogram for malignant neoplasm of breast (principal) | CPT/HCPCS: 77063; 77067 ==

== ENCOUNTER 2024-12-24 11:52 | Outpatient (AMB) | payer OTHER, SELFPAY ==
--- NOTE | 2024-12-24 12:01 | A.OFFPC_ITS ---
Vital Signs 12/24/24 12:02 Height 5 ft 2 in Weight 176 lb BMI 32.2 BP 130/80 Blood Pressure Location Lt brachial Position Sitting Respiration 17 Pulse 71 Pulse Source Pulse Oximeter Temp 98.6 F Temp Source Oral Pulse Oximetry (%) 94 Oxygen Delivery Method Room Air Intake Visit Reasons: Lump in foot Intake Note: Pt is here today c/o Lt under foot lump and also lump under Rt foot Allergies No Known Allergies Allergy (Verified 12/24/24 17:20) Medication List - Last Reconciled 12/24/24 by Makenna Carbone MD omeprazole 40 mg PO DAILY quetiapine 150 mg PO DAILY quetiapine mg PO Tobacco use date assessed: 12/24/24 Dental Screening Dental Screen Date: 12/24/24 Did you have a dental visit in the last 12 months?: No Did you have a dental problem in the last 6 months where you did not have access to dental care?: No Was dental information given to patient?: Patient declined HPI Lump in foot HPI Details - The patient is a 59-year-old female wi th past medical history significant for GERD, bipolar disorder, osteoarthritis, here today complaining o f nodular mass on medial aspect left foot, which has been present over the last several months.- has been gradually increasing in size and now causes sharp pain upon weight-bearing. She now has similar mass developing on plantar aspect of right foot, which causes pain when she walks. She has seen Podiatry who ordered an MRI of the foot which showed plantar fibroma, and a biopsy was advised . She has sought a 2nd opinion with Dr. Nogueira who has advised the same . Complains also of occasional lightheadedness and fatigue. Has history of vitamin D deficiency and anemia. Denies any other symptoms. PFSH Medical History Plantar fascial fibromatosis of both feet Varicose veins of right lower extremity with pain COVID-19 vaccination declined Medial epicondylitis, left elbow GERD (gastroesophageal reflux disease) Varicose veins of leg with pain Refused influenza vaccine Varicose veins of leg with pain Popliteal pain History of chlamydia Bipolar disorder History of syphilis History of crack cocaine use Surgical History History of breast biopsy History of lipoma Family History Father No problems noted. Mother HTN (hypertension) Arthritis Mental health disorder Brother Substance use disorder Brother No problems noted. Brother No problems noted. Sister No problems noted. Son Mental health disorder Son No problems noted. Son No problems noted. Son No problems noted. Daughter Mental health disorder Maternal Aunt Substance use disorder Social History Housing: House Alcohol intake: never Patient Tobacco Use Status: Never used Tobacco e-Cigarette/Vaping Use: Never Used service: No Current occupational status: unemployed Current occupation: Right Handed Cognitive needs: No Hearing needs: No Vision needs: Yes Questionnaire Thrive Questionnaire Date Thrive assessed: 06/24/24 ROSSY-7 AMB Questionnaire ROSSY-7 Date ROSSY - 7 assessed: 06/24/24 Source: Developed by Drs. Keon Cordero, Devi Fernandez, Ry Miller and colleagues, with an educational ramandeep from [employer]. Review of Systems Const All systems reviewed & are unremarkable except as noted in HPI and below Physical exam (Primary Care) Vital Signs: Last Vital Signs Temp 98.6 F 12/24/24 12:02 Pulse 71 12/24/24 12:02 Resp 17 12/24/24 12:02 BP 130/80 12/24/24 12:02 Pulse Ox 94 12/24/24 12:02 Oxygen Delivery Method Room Air 12/24/24 12:02 BMI result Body Mass Index 32.2 Tobacco/Smoking Status: Tobacco use Status Tobacco use date assessed 12/24/24 12/24/24 12:06 Patient Tobacco Use Status Never used Tobacco 12/24/24 12:06 e-Cigarette/Vaping Use Never Used 12/24/24 12:06 Thrive Assessment: Date of Thrive Assessment Date Thrive assessed 06/24/24 12/24/24 12:06 HENMT Head: Yes normocephalic Ears: external ears normal General nose exam: Normal external nose present Face and sinus: Yes face symmetric Mouth: Normal oral and palatal mucosa present and moist mucous membranes Eyes General: appearance normal, both eyes and all related structures Neck Neck: Yes full ROM, Yes no lymphadenopathy and Yes supple Resp Effort & Inspection: normal respiratory effort and able to speak in complete sentences Auscultation: clear to auscultation bilaterally Cardio Palpation: normal PMI Rate: regular rate Rhythm: regular rhythm Heart sounds: S1 normal heart sound present and S2 normal heart sound present GI Palpation (GI): Soft to palpation, nontender, no guarding and no masses Auscultation: normal bowel sounds Back/Spine/Pelvis Back: No back tenderness Cervical Spine: normal cervical lordosis Thoracic/Lumbar Spine: thoracic and lumbar spine normal to inspection and thoraco-lumbar ROM normal Skin Other: Nodular mass nontender on medial aspect of left foot, and firm nontender elongated mass palpated on plantar aspect of right foot Rashes: no rashes Neuro General: Normal light touch and pain sensation, no focal motor deficits, CN's II-XI intact bilaterally and normal sensation to monofilament Gait exam (Neuro): Antalgic gait present Extrem General: Yes normal to inspection, Yes full ROM, Yes no joint enlargement, Yes no pedal edema and Yes no calf tenderness Coding Level of Care Code Est Pt Level 4 (97677) Diagnoses Plantar fascial fibromatosis of both feet M72.2 Fatigue, unspecified type R5.83 Fatigue type: unspecified Intermittent lightheadedness R42 Assessment & Plan Assessment & Plan (1) Plantar fascial fibromatosis of both feet: Code(s): M72.2 - Plantar fascial fibromatosis Category: Medical Plan: Advised to keep appointment with her heavy coil winder, Dr. Trimble (2) Fatigue: Code(s): R53.83 - Other fatigue Qualifiers: Fatigue type: unspecified Qualified Code(s): R53.83 - Other fatigue Plan: Ordered CBC with differential, TSH with reflex T4 and vitamin-D level (3) Intermittent lightheadedness: Code(s): R42 - Dizziness and giddiness Plan: Ordered CBC with differential, TSH with reflex T4 and vitamin-D level Orders: Orders Vitamin D 25-OH Total Today R42 - Dizziness and giddiness, R53.83 - Other fatigue TSH reflex Free T4 Today R42 - Dizziness and giddiness, R53.83 - Other fatigue Complete Blood Count Auto Diff Today R42 - Dizziness and giddiness, R53.83 - Other fatigue
[2024-12-24 12:02] VITALS: BP 130/80; PULSE 71; RESP 17; TEMP 37; O2SAT 94; BMI 32.2
== END 2024-12-24 12:23 | disposition home or self-care (01) ==
LOC: HO.HMCC 11:52
PROVIDERS: PCP Internal Medicine; Visit Provider Internal Medicine
DX: M72.2 Plantar fascial fibromatosis (principal); R53.83 Other fatigue; R42 Dizziness and giddiness

== ENCOUNTER → 2024-12-24 11:52 | Outpatient (BNVA) | payer OTHER, SELFPAY | PROVIDERS: PCP Internal Medicine; Visit Provider Internal Medicine | DX: M72.2 Plantar fascial fibromatosis (principal); K21.9 Gastro-esophageal reflux disease without esophagitis; F31.9 Bipolar disorder, unspecified; R53.83 Other fatigue; R42 Dizziness and giddiness | CPT/HCPCS: 99212 ==

== ENCOUNTER 2025-01-06 07:07 | Outpatient (REF) | payer OTHER, SELFPAY ==
[2025-01-06 10:15] LABS: MANUAL DIFF FLAG NO
[2025-01-06 10:33] LABS: Hematocrit 42.2 % (37.0-47.0); Hemoglobin 13.7 g/dl (12.0-16.0); Imm Gran Abs Auto 0.03 X10*3/uL (0.00-0.03); Imm Gran Pct Auto 0.3 % (0.0-0.4); Lymphocytes Absolute Auto 4.1 X10*3/uL (1.2-4.9); Mean Corpuscular HGB Conc 32.5 g/dl (31.0-35.0); Mean Corpuscular Hemoglobin 29.1 pg (27.0-33.0); Mean Corpuscular Volume 89.8 fL (80.0-98.0); NRBC Abs Auto 0.000 X10*3/uL (0.0-0.012); NRBC Pct Auto 0.0 /100WBC (0.0-0.2); Platelet Count 293 X10*3/uL (160-400); Red Blood Count 4.70 X10*6/uL (4.20-5.50); White Blood Count 9.1 X10*3/uL (4.8-10.8)
[2025-01-06 10:54] LABS: Alanine Aminotransferase 29 U/L (0-31); Anion Gap 14 (12-20); Aspartate Amino Transferase 28 U/L (5-31); Blood Urea Nitrogen 25 mg/dL (9-16); Calcium 10.0 mg/dL (8.4-10.2); Carbon Dioxide 27 mmol/L (22-29); Chloride 104 mmol/L (96-108); Cholesterol 180 mg/dL (<200); Estimated Glomerular Filt Rate > 60; HDL Cholesterol 59 mg/dL (>40); Potassium 5.0 mmol/L (3.3-5.1); Sodium 140 mmol/L (135-145); Triglycerides 110 mg/dL (<150)
[2025-01-06 11:52] LABS: Free T4 (Free Thyroxine) 0.93 ng/dL (0.71-1.85)
== END 2025-01-06 07:08 | disposition home or self-care (01) ==
LOC: HO.HMGCLDS 07:07
PROVIDERS: PCP Internal Medicine; Visit Provider Internal Medicine
DX: Z00.01 Encounter for general adult medical examination with abnormal findings (principal); K21.9 Gastro-esophageal reflux disease without esophagitis; F31.9 Bipolar disorder, unspecified; R53.83 Other fatigue; R42 Dizziness and giddiness; Z71.89 Other specified counseling
CPT/HCPCS: 36415; 80048; 80061; 82306; 84439; 84443; 84450; 84460; 85025

== ENCOUNTER 2025-02-06 13:22 | Outpatient (AMB) | payer OTHER, SELFPAY ==
[2025-02-06 13:25] VITALS: BP 118/80; PULSE 74; TEMP 36.6; O2SAT 97; BMI 31.8
--- NOTE | 2025-02-06 13:25 | AM.OFFWIN_ITS ---
Intake Vital Signs 3 02/06/25 13:25 Height 5 ft 2 in Weight 174 lb BMI 31.8 BP 118/80 Blood Pressure Location Rt brachial Position Sitting Pulse 74 Pulse Source Pulse Oximeter Temp 98 F Temp Source Oral Pulse Oximetry (%) 97 Oxygen Delivery Method Room Air Intake Visit Reasons: EP-feet lumps pain Intake Note: pt presents with painful bumps bilateral feet Patient Tobacco Use Status: Never used Tobacco Allergies No Known Allergies Allergy (Verified 02/06/25 13:30) Do you need a note to return to daycare/school/sports/work: No HPI HPI Comments 2 History of Present Illness0 Details 59 y/o Female patient who presents to e walk in clinic with c/o nodular mass on medial aspect left foot, which has been present over the last several months.- has been gradually increasing in size causing sharp pain on weight bearing. Reports similar mass developing on plantar aspect of right foot, which causes pain when she walks or standing. She was referred to a Creative Assistant who ordered an MRI of the foot which showed plantar Fibroma, and a biopsy was advised. Pt was scheduled for surgery/ Bx but she did not show up and did not Cancel either. Reports that she got scared and did not like the Doctor and wanted a second Opinion. She sought second opinion from Dr. Nogueira who advised the same. Dr. Nogueira also recommended Treating the Fibromas conservatively first for 3-6 months before surgery due to high recurrence Rate. And usually surgery is reserved for Nodules that continue to cause Pain despite conservative methods. Dr. Doss recommended Patient returns to the original Creative Assistant for Bx first. Pt reports that the first Creative Assistant has refused to see her again since she no showed for surgery without Cancellation. 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 Mother HTN (hypertension) Arthritis Mental health disorder Brother Substance use disorder Brother No problems noted. Brother No problems noted. Sister No problems noted. Son Mental health disorder Son No problems noted. Son No problems noted. Son No problems noted. Daughter Mental health disorder Maternal Aunt Substance use disorder Social History Housing: House Alcohol intake: never Patient Tobacco Use Status: Never used Tobacco e-Cigarette/Vaping Use: Never Used service: No Current occupational status: unemployed Current occupation: Right Handed Cognitive needs: No Hearing needs: No Vision needs: Yes Review of Systems Const All systems reviewed & are unremarkable except as noted in HPI and below Physical Exam Vital Signs: Last Vital Signs Temp 98 F 02/06/25 13:25 Pulse 74 02/06/25 13:25 BP 118/80 02/06/25 13:25 Pulse Ox 97 02/06/25 13:25 Oxygen Delivery Method Room Air 02/06/25 13:25 BMI result Body Mass Index 31.8 Const General: no acute distress Nutritional Appearance: overweight Orientation/consciousness: patient oriented x3 Neuro General: patient oriented x3, gait normal and moves all extremities Extrem Ankle/foot/toe images: 2 1. Nodular masses (two) nontender on medial aspect of left foot, and firm nontender small mass palpated on plantar aspect of right foot. 2. Nodular masses (two) nontender on medial aspect of left foot, and firm nontender small mass palpated on plantar aspect of right foot Psych Speech and movement: Normal speech and movement present Assessment & Plan Assessment & Plan (1) Plantar fascial fibromatosis of both feet: Code(s): M72.2 - Plantar fascial fibromatosis Plan: Patient has not tried Conservative methods, she now wants to be seen because the pain is unbearable. She does not want to wait 3-6 months before surgery. Advised to return to Dr. Doss - recommended she calls his Office. Encouraged her to try the Conservatives methods for now while waiting for Surgery. Coding Level of Care Code Est Pt Level 4 (24669) Diagnoses Plantar fascial fibromatosis of both feet M72.2 Time Spent (min) 20
== END 2025-02-06 13:58 | disposition home or self-care (01) ==
PROVIDERS: PCP Internal Medicine; Visit Provider Nurse Practitioner Family
DX: M72.2 Plantar fascial fibromatosis (principal)

== ENCOUNTER → 2025-02-06 13:22 | Outpatient (BNVA) | payer OTHER, SELFPAY | PROVIDERS: PCP Internal Medicine; Visit Provider Nurse Practitioner Family | DX: M72.2 Plantar fascial fibromatosis (principal) | CPT/HCPCS: 99212 ==